=== PATIENT | male | born 1945 | race Caucasian/White ===

== ENCOUNTER 2017-09-02 06:37 | Observation (INO) ==
[2017-09-02] MEDS ORDERED: CeFAZolin Syr 2,000MG/20 ML 2,000 MG/20 ML SYRINGE IVPB ONE (06:51)
[2017-09-02] MEDS ORDERED: Lidocaine -MPF 1% 2 ML VIAL ID ONE (06:51)
[2017-09-02] MEDS ORDERED: *HR* FentaNYL (PF) 100 MCG/2 ML VIAL ONE ×2 (06:55→09:20)
[2017-09-02] MEDS ORDERED: Lidocaine -MPF 2% 2 ML VIAL ONE ×2 (06:55→08:14)
[2017-09-02] MEDS ORDERED: Ketamine *HR* 500 MG/10 ML MDV ONE (06:55)
[2017-09-02] MEDS ORDERED: *HR* Propofol 200 MG/20 ML VIAL IVP ONE (06:55)
[2017-09-02] MEDS ORDERED: *HR* Rocuronium Bromide 50 MG/5 ML VIAL ONE (06:55)
[2017-09-02] MEDS ORDERED: Albuterol 2.5 MG/3 ML NEBULIZER IH ONE (07:02)
[2017-09-02] MEDS: Ringers Solution, Lactated 1,000 ML IVC SCH ×2 (07:04→09:31)
[2017-09-02] MEDS ORDERED: Heparin 1,000 UNITS/500 mL 500 ML ONE (07:06)
[2017-09-02] MEDS ORDERED: Heparin 1,000 UNITS/500 mL 1,500 ML ONE (07:25)
--- NOTE | 2017-09-02 07:25 | Anesthesia Evaluation PreOp ---
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 HX Other Medical History: Renal (CKD 3), GERD Anesthesia History: No Prior Anesthetic Complications, Past Anesthesia Alcohol Use: none Drug use: none Medications and Allergies Albuterol Sulfate [Albuterol Inhaler] 2 puff IH Q4H PRN 06/13/17 [History] Aspirin Enteric Coated [Aspirin EC] 162 mg PO DAILY 06/13/17 [History] Carvedilol [Coreg] 6.25 mg PO BIDWM 06/13/17 [History] Cyanocobalamin (Vitamin B-12) [Vitamin B12] 2,000 mcg PO DAILY 06/13/17 [History ] Escitalopram [Lexapro] 20 mg PO DAILY 06/13/17 [History] Folic Acid 1 mg PO DAILY 06/13/17 [History] HYDROcodone/Acet 10/325 mg [[place] 10-325 mg] 1 - 2 tab PO Q6H 06/13/17 [History] Methotrexate [Otrexup] 20 mg PO TU 06/13/17 [History] Nitroglycerin [Nitrostat] 0.4 mg SL Q5M PRN 06/13/17 [History] Omeprazole [PriLOSEC] 40 mg PO DAILY 06/13/17 [History] Ramipril [Altace] 10 mg PO DAILY 06/13/17 [History] Sennosides [Ex-Lax] 15 mg PO DAILY PRN 06/13/17 [History] Simvastatin [Zocor] 40 mg PO HS 06/13/17 [History] cloNIDine HCl [CloNIDine HCl] 0.1 mg PO DAILY 06/13/17 [History] 3 Allergy/AdvReac Type Severity Reaction Status Date / Time Iodinated Contrast- Oral and AdvReac Hives Verified 06/13/17 12:28 IV Dye iodine AdvReac Hives Verified 06/13/17 12:28 Anesthesia Results - Labs Laboratory Tests 08/25/17 08/25/17 15:46 15:46 Hgb 14.2 Hct 44.2 Plt Count 320 Sodium 137 Potassium 4.5 BUN 15 Creatinine 1.10 - Imaging EKG: report reviewed (SINUS RHYTHM) Additional studies: normal stress test Anesthesia Exam Selected Entries 09/02/17 06:58 09/02/17 07:02 Temperature 98.5 F Pulse Rate 84 Respiratory Rate 18 Blood Pressure 131/81 O2 Sat by Pulse Oximetry 96 - HEENT Pupil (Motor): EOMI Mallampati: II Teeth: Missing Oral Opening: Greater than 3 - 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
[2017-09-02] MEDS ORDERED: Acetaminophen IV 1,000 MG/100 ML INFUS..BTL ONE (07:26)
[2017-09-02] MEDS ORDERED: *HR* Midazolam HCl 2 MG/2 ML VIAL ONE (07:32)
--- NOTE | 2017-09-02 07:36 | History & Physical Report ---
Date of Encounter: 09/02/17 Time of Encounter: 07:25 24 Hour HP Update - Instructions Instructions: If the History and Physical is less than 30 days old and was completed prior to A.M. admission and or procedure and has NOT been updated on calendar day of procedure please complete this update prior to performing procedure. - Update Patient reports changes in Medical Condition: No Changes in examination, assessment, or condition: No Changes in Medication: No Preop tests/diagnostics Reviewed: Yes Surgery Remains Indicated: Yes Consent for Planned Operative Procedure(s) Verified: Yes - Pre-Operative Checklist Preoperative Checklist Indicated: Yes Prophylactic Antibiotic Ordered: Yes Home Medications Include Beta Rom: Yes Beta Rom Taken Today (Day of Surgery): Yes Beta Rom Taken Yesterday (Day Prior to Surgery): Yes Is VTE Prophylaxis Indicated?: Yes
[2017-09-02] MEDS ORDERED: ceFAZolin 1,000 MG, Sodium Chloride IRRigation 1,000 ML IR ONE (07:45)
[2017-09-02] MEDS ORDERED: MethylPREDNISolone 40 MG/ML VIAL ONE (08:26)
[2017-09-02] MEDS ORDERED: EPHEDrine 50 MG/ML VIAL ONE (08:45)
[2017-09-02] MEDS ORDERED: Ondansetron 4 MG/2 ML VIAL IVP ONE (09:01)
[2017-09-02] MEDS ORDERED: *HR* HYDROmorphone 2 MG TABLET PO PRN (09:01)
[2017-09-02] MEDS ORDERED: *HR* Heparin 5,000 UNIT/ML VIAL ONE (09:24)
[2017-09-02] MEDS ORDERED: Water for inj. (sterile) 10 ML IV ONE (09:25)
[2017-09-02] MEDS ORDERED: Ondansetron 4 MG/2 ML VIAL ONE (10:10)
[2017-09-02] MEDS ORDERED: Neostigmine Methylsulfate 3 MG/3 ML SYRINGE ONE (10:12)
[2017-09-02] MEDS ORDERED: Heparin 1,000 UNITS/500 mL 1,000 ML ONE (10:13)
[2017-09-02] MEDS ORDERED: Lidocaine -MPF 4% 5 ML AMPUL ONE (11:06)
--- NOTE | 2017-09-02 11:14 | Operative Note ---
Date of procedure: 09/02/17 Pre-op diagnosis: Abdominal aortic aneurysm Post-op diagnosis: same Procedure: Endovascular repair of abdominal aortic aneurysm Bilateral open femoral artery exposure Catheter placement nonselective anterior aorta from bilateral femoral approach Extension prosthesis initial vessel on right side Radiologic supervision and interpretation Complications: None Anesthesia: GETA Surgeon: Wing Lorenzo Co-Surgeon: Kishan Downing Was there an accounting administrative assistant present: No Estimated blood loss (cc): 200 Specimen: None Condition: stable Disposition: PACU Procedure in Detail: History Usman Leon is a 72-year-old white male with a known history of an abdominal aortic aneurysm. The aneurysm has been expanding in size and is now approximately 5.5 cm. Patient is up to proceed with surgery at this time. He now comes for endovascular repair. Procedure After informed consent was obtained the patient was taken to the operating room. General endotracheal anesthesia was established under arterial line pressure monitoring. The abdomen groin and upper thighs were sterilely prepped and draped. A timeout protocol was observed. A 2 team surgical approach was used for this patient. This was necessary due to the patient's multiple comorbidities. This would also decrease anesthesia time and decreased blood loss. The common femoral artery was dissected bilaterally through oblique incisions. Control was obtained of the vessels using Vesseloops. Then using an 18-gauge needle the arteries were punctured and a retrograde fashion. This was then followed by a wire. An 8 Serbian sheath with dilator was then passed over the wire. The dilator was removed and the sheath was aspirated and flushed. A marker pigtail catheter was placed via the right side. An aortogram was then obtained. The aorta and the iliac artery bifurcation areas were marked and measured. The marker pigtail catheter was then moved over to the left side. The main body was selected to be placed via the right side. The main body was a Medtronic Endurant 2 stent graft system. This was a 25 x 13 x 166 mm device. The device was deployed in the immediate infrarenal location. The suprarenal stent was also deployed. A right-sided device was opened to the point of the docking limb orifice being opened. Then from the left side the docking limb was engaged and appropriate positioning of the wire was assured. Then the left-sided device was placed. This was a 16 x 13 x 124 mm stent graft limb. This was deployed in the position down to but above the left iliac bifurcation. The device [place] was removed and 11 Serbian sheath was then placed. It was then aspirated and flushed with heparinized saline. Attention was then turned back to the right side. The right- sided graft wasn't totally deployed. The top From the suprarenal portion was also removed. This device was then removed and the and 11 Serbian sheath was placed into the right groin. The marker pigtail catheter was then placed back into the right iliac system and a retrograde Angiogram was obtained. It was elected to proceed then with a extension piece on the right side. This was measured at a 13 x 13 x 82 mm. This was then inserted under fluoroscopic control. After this was performed the Reliant balloon was placed from the right and then from the left side and the stent graft was gently dilated. A completion aortogram was then obtained via the marker pigtail catheter. This demonstrated patency of the iliac system and both renal arteries. There was an area of stenosis however in the proximal aspect of the right limb of the graft. Therefore a 10 x 20 balloon was placed into this area and inflated while the overlying balloon was placed into the left side and gently inflated to maintain its luminal diameter. A completion film was then performed which showed resolution of the stenosis. All devices were then removed. The femoral areas were closed with running 6-0 Prolene suture. After appropriate backbleeding and flushing the arteries were opened. Excellent pulsations and Doppler signals were identified bilaterally. The wounds were then irrigated with antibiotic- containing solution. There were closed in layers using absorbable suture. Dry sterile dressings were applied. The patient was extubated in the operating room and taken to the recovery room in stable condition.
--- NOTE | 2017-09-02 11:40 | Anesthesia Evaluation Post Op ---
Date of Encounter: 09/02/17 Time of Encounter: 11:38 - Vital Signs Vital Signs: Vital Signs/O2 Sat/Glucose, Most Recent Temp Pulse Resp BP Pulse Ox 97.6 F 64 16 147/78 100 09/02/17 10:59 09/02/17 11:19 09/02/17 11:19 09/02/17 11:19 09/02/17 11:19 Blood Glucose* 134 - Lungs Lungs: Clear Ascult./Percussion - Airway Airway: Non-obstructed - Cardiovascular Regular Rate - Mental Status Mental Status: Alert & Oriented, Answers Appropriately - Pain Pain Scale: 3 Pain Scale used: Numeric (1 - 10) - Nausea Vomiting Nausea Vomiting: Not Present - Hydration Hydration: Ice chips, Goetz catheter Notes: 09/02/17 11:39 AAOx3, VSS with no complaints, doppler pulses present - Discharge PostOp Status: Transfer Patient to floor
[2017-09-02] MEDS ORDERED: Naloxone 0.4 MG/ML INJ IVP PRN (12:07)
[2017-09-02] MEDS ORDERED: *HR* HYDROcodone/Acet 10/325 mg TABLET PO PRN (12:07)
[2017-09-02] MEDS ORDERED: *HR* Methotrexate 2.5 MG TABLET PO SCH (12:07)
[2017-09-02] MEDS ORDERED: Ondansetron 4 MG/2 ML VIAL IVP PRN (12:07)
[2017-09-02] MEDS ORDERED: Nitroglycerin 0.4 MG TAB.SUBL SL PRN (12:07)
[2017-09-02] MEDS: *HR* OxyCODONE Immed Rel 5 MG TABLET PO PRN ×2 (13:45→20:43)
[2017-09-02] MEDS: CeFAZolin Premix DUPLEX 2,000 MG/50 ML BAG IVPB SCH (15:58)
[2017-09-02] MEDS ORDERED: CeFAZolin Syringe 2,000MG/20 ML SYR IVPB SCH (16:00)
--- NOTE | 2017-09-02 18:25 | Operative Note ---
Date of procedure: 09/02/17 Pre-op diagnosis: Abdominal aortic aneurysm Post-op diagnosis: same Procedure: 1. Medtronic Endurant modular bifurcated aortic endograft placement with 2 docking limbs including radiologic supervision and interpretation. 2. Right femoral vessel exposure for endograft placement. 3. Left femoral vessel exposure for endograft placement. Complications: None Anesthesia: GETA Surgeon: Kishan Downing Co-Surgeon: Wing Lorenzo Was there an fundraising assistant present: No Estimated blood loss (cc): 200 Specimen: None Condition: stable Disposition: PACU Procedure in Detail: Indications: The patient is a 72 year old male with a history of hypertension, hyperlipidemia and coronary artery disease with prior coronary stent placement. He is also a former smoker. He was found to have a 5.5cm infrarenal abdominal arotic aneurysm. His anatomy was suitable for aortic endograft placement and surgery was recommended to reduce her risk of rupture. The patient was identified, brought to the operating room and placed in the supine position on the operating room table. After induction of general endotracheal anesthesia, the patient was cleaned and draped in normal sterile fashion. A two surgeon approach was utilized for this procedure in order to minimize anesthetic time and the risks for complications due to his comorbid conditions. In addition, a two surgeon approach was used for intraoperative decision making. Oblique incisions were made over both groins sharply. Hemostasis was obtained with electrocautery. Using blunt and sharp and electrocautery dissection, the bilateral common, deep and superficial femoral arteries were dissected circumferentially and surrounded with Vesseloops. At this point, the patient received heparin intravenously and then bilateral femoral punctures with large-bore needles were performed. J-wires were advanced into the aorta under fluoroscopic view. Given the anatomy, the main body was selected to be the right side in this patient. The needles were exchanged for bilateral sheaths and a long Pigtail catheter was advanced over the right wire into the aortic arch. The J-wire was removed and replaced with a stiff wire. The catheter was then advanced over the left wire and an angiogram was performed via a pigtail catheter for sizing of the graft. The main body was inserted over the stiff wire with the contralateral limb being in the ipsilateral position. An aortogram was then performed at the level of the renal arteries. The graft was positioned just inferior to the renal arteries and the first 2 segments were deployed. Again an aortogram revealed adequate infrarenal placement. The graft was then further opened to the contralateral limb exposed. A final angiogram was performed confirming adequate infrarenal placement. The suprarenal stent was deployed in the usual fashion. The contralateral limb was then selected with a wire using a guiding catheter. Intragraft placement of the catheter was confirmed by injecting contrast into the graft. An oblique view of the pelvis was performed with contrast to size the left extension limb. The sheath was removed and exchanged for the appropriate limb, which was advanced under fluoroscopic view and positioned. It was then expanded. The introducer and graft sheath were exchanged for a sheath. An oblique view of the right pelvis was performed and the length of the extension limb on the right was determined. The sheath was exchanged for the limb and then the limb was deployed. The introducer and graft sheath were exchanged for a sheath. Upon completion of the graft docking limb extension, a Reliant balloon was then advanced into the graft proximal and distal endpoints as well as overlap were expanded with gentle pressure bilaterally. A Flush completion angiogram revealed no evidence of an endoleak. However, a stenosis was noted to be present in the right proximal iliac artery. A 10 x 20mm balloon was advanced across the stenotic segment and angioplasty was performed. The reliant balloon was inflated in the left limb of the graft to provide counter pressure. The balloons were removed and an angiogram revealed resolution of the stenosis. Tension was applied to the Vesseloops in the groin. The sheaths and wires were then removed. The bilateral arteriotomies were repaired with a running 6-0 Prolene. Antibiotic irrigation was infused into the groin. The bilateral groins incisions were closed with 2-0 Vicryl, 3-0 Vicryl and 4-0 Vicryl. Sterile dressings were applied. The patient was then extubated and taken to the recovery room in stable condition. Device Sizes: Main Body: 25 x 13 x 166 mm Right Limb: 13 x 13 x 82 mm Left Limb: 16 x 13 x 124 mm
[2017-09-02] MEDS: *HR* HYDROcodone/Acet 10/325 mg TABLET PO PRN (18:34)
[2017-09-02] MEDS ORDERED: Aspirin Enteric Coated 81 MG Tablet PO SCH (21:00)
[2017-09-02] MEDS: Lisinopril 20 MG TABLET PO SCH (21:34)
[2017-09-02] MEDS: cloNIDine HCl 0.1 MG TABLET PO SCH (21:34)
[2017-09-02] MEDS: Ketorolac 15 MG/ML VIAL IVP PRN (21:52)
[2017-09-03] MEDS: CeFAZolin Premix DUPLEX 2,000 MG/50 ML BAG IVPB SCH ×2 (00:44→07:32)
[2017-09-03] MEDS: *HR* HYDROcodone/Acet 10/325 mg TABLET PO PRN ×3 (00:45→13:12)
[2017-09-03] MEDS: Ketorolac 15 MG/ML VIAL IVP PRN (02:57)
[2017-09-03] MEDS: *HR* OxyCODONE Immed Rel 5 MG TABLET PO PRN (02:57)
[2017-09-03 07:12] LABS: Hematocrit 38.1 % (37.5-50.1); Hemoglobin 12.2 g/dL (12.9-16.9); Mean Corpuscular Hemoglobin 31.9 pg (28.0-33.3); Mean Corpuscular Volume 99.7 fL (83.0-100.0); Mean Platelet Volume 10.9 fL (9.4-12.4); Platelet Count 220 K/mcL (140-400); Red Blood Count 3.82 M/mcL (4.19-5.50); Red Cell Distribution Width 14.1 % (11.5-14.5)
[2017-09-03] MEDS: Lisinopril 20 MG TABLET PO SCH (07:31)
[2017-09-03] MEDS: cloNIDine HCl 0.1 MG TABLET PO SCH (07:31)
[2017-09-03 08:22] LABS: BUN/Creatinine Ratio 13 (6-26); Blood Urea Nitrogen 15 mg/dL (8-23); Calcium 8.9 mg/dL (8.6-10.3); Carbon Dioxide 25 mEq/L (23-29); Chloride 107 mEq/L (98-107); Glucose 128 mg/dL (70-105); Osmolality,Calculated 290 (280-300); Potassium 4.4 mEq/L (3.5-5.1); Sodium 139 mEq/L (136-145); eGFR For African Americans > 60 (> 60); eGFR For Non-African Americans > 60 (> 60)
[2017-09-03] MEDS ORDERED: Folic Acid 1 MG TABLET PO SCH (09:00)
[2017-09-03] MEDS ORDERED: Cyanocobalamin (B-12) 1,000 MCG TABLET PO SCH (09:00)
[2017-09-03 11:30] VITALS: BP 92/51
--- NOTE | 2017-09-03 11:49 | Discharge Summary ---
Date of Encounter: 09/03/17 Time of Encounter: 11:45 - Discharge Diagnosis (1) AAA (abdominal aortic aneurysm) Priority: Primary Status: Acute Comments: The patient had asymptomatic abdominal aortic aneurysm. The aneurysm was growing in size by serial outpatient measurements. The patient was admitted and had surgical treatment with endovascular repair. Qualifiers: Presence of rupture: without rupture Qualified Code(s): I71.4 - Abdominal aortic aneurysm, without rupture (2) DM type 2 (diabetes mellitus, type 2) Priority: Secondary Status: Chronic Qualifiers: Diabetes mellitus complication status: without complication Diabetes mellitus terminal operator insulin use: without terminal operator use Qualified Code(s): E11.9 - Type 2 diabetes mellitus without complications (3) COPD (chronic obstructive pulmonary disease) Priority: Secondary Status: Chronic Qualifiers: COPD type: unspecified COPD Qualified Code(s): J44.9 - Chronic obstructive pulmonary disease, unspecified (4) HTN (hypertension) Priority: Secondary Status: Chronic Qualifiers: Hypertension type: essential hypertension Qualified Code(s): I10 - Essential (primary) hypertension (5) Hyperlipidemia Priority: Secondary Status: Chronic Qualifiers: Hyperlipidemia type: unspecified Qualified Code(s): E78.5 - Hyperlipidemia , unspecified (6) CAD (coronary artery disease) Priority: Secondary Status: Chronic Qualifiers: Coronary Disease-Associated Artery/Lesion type: ambler artery [place] vs. transplanted heart: ambler heart Associated angina: without angina Qualified Code(s): I25.10 - Atherosclerotic heart disease of ambler coronary artery without angina pectoris - Discharge Medications Prescriptions: HYDROcodone/Acet 5/325 mg [[place] 5-325 mg] 1 tab PO Q4H PRN 7 Days #10 tab PRN Reason: Pain Home Medications: Aspirin Enteric Coated [Aspirin EC] 162 mg PO HS 06/13/17 [History] Carvedilol [Coreg] 6.25 mg PO BIDWM 06/13/17 [History] Cyanocobalamin (Vitamin B-12) [Vitamin B12] 2,000 mcg PO DAILY 06/13/17 [History ] Escitalopram [Lexapro] 20 mg PO DAILY 06/13/17 [History] Folic Acid 1 mg PO DAILY 06/13/17 [History] HYDROcodone/Acet 10/325 mg [[place] 10-325 mg] 1 - 2 tab PO Q6H PRN 06/13/17 [ History] Methotrexate [Otrexup] 20 mg PO TU 06/13/17 [History] Nitroglycerin [Nitrostat] 0.4 mg SL Q5M PRN 06/13/17 [History] Omeprazole [PriLOSEC] 40 mg PO DAILY 06/13/17 [History] Ramipril [Altace] 10 mg PO DAILY 06/13/17 [History] Simvastatin [Zocor] 40 mg PO HS 06/13/17 [History] cloNIDine HCl [CloNIDine HCl] 0.1 mg PO DAILY 06/13/17 [History] HYDROcodone/Acet 5/325 mg [[place] 5-325 mg] 1 tab PO Q4H PRN 7 Days #10 tab 09/03 [Rx] Allergies/Adverse Reactions: 3 Allergy/AdvReac Type Severity Reaction Status Date / Time Iodinated Contrast- Oral and AdvReac Hives Verified 09/02/17 07:35 IV Dye iodine AdvReac Hives Verified 09/02/17 07:35 Date of admission: 09/02/17 11:45 Primary care physician: Gopi David MD Consults: None Procedure(s) Performed: Endovascular repair of abdominal aortic aneurysm Discharging clinician: Wing Lorenzo Anticipated date of discharge: 09/03/17 - Patient Status Disposition: Home, Self-Care Condition: Good Functional capacity at discharge: independent ambulation Overall status at discharge: patient is progressing back to baseline - Discharge Instructions Instructions: Endovascular Abdominal Aortic Aneurysm Repair (DC) Follow Up With: Gopi David MD [Primary Care Provider] - 09/09/17 1:00 pm Wing Lorenzo MD [Partnered Physician] - 09/15/17 2:15 pm Additional Instructions: Resume usual home medications Keep surgical site press tender short goods total of 5 days following surgery. No automobile driving. No lifting greater than 10 pounds. No manual labor. Using incentive spirometer 10 times an hour while awake at home for the next 2 weeks. - Diet and Activity Activity: increase activity as tolerated Diet: advance to your usual diet - Hospital Course Hospital course: Mr. Leon is a 72 year old male With a known abdominal aortic aneurysm. This is been followed by outpatient serial scanning. It is increased in size and the patient now has a greater than 5 cm aneurysm. He desired to have this treated at this point. The patient was admitted and underwent endovascular repair of the abdominal aortic aneurysm. The patient had no periprocedural complications. Patient was feeling well postoperative day #1. He was felt fit for discharge. Instructions were given in regards to diet and exercise and wound care. - Time Spent with Patient Total time spent providing and/or coordinating discharge services: Exam Vital Signs, Last 4 Hours Temp Pulse Resp BP Pulse Ox 09/03/17 11:19 97.9 F 65 19 92/51 94 General: Present: Conversant, No Apparent Distress, Well developed, Well nourished HEENT: Present: Atraumatic, Normocephaly, Trachea midline Neck: Absent: JVD Cardiac: Present: Reg Rate and Rhythm Lungs: Present: Normal Breath Sounds Neuro: Present: Alert and responsive, No focal deficits noted, Cranial nerves grossly intact Abdomen: Present: Soft, Non-tender. Absent: Masses Vascular: Present: Surgical incisions (Clean and dry) - VTE Documentation of Mechanical Device: Intermittent pneumatic compression device
== END 2017-09-03 18:07 | disposition home or self-care (01) | DRG 269 ==
LOC: SAMDAY 06:37 → INTOOBSV 11:45 → 2NNU 11:45
PROVIDERS: ADMIT Surgery Vascular Surgery; ATTEND Surgery Vascular Surgery

== ENCOUNTER 2018-11-05 13:35 | Observation (INO) ==
[2018-11-05] MEDS ORDERED: Ondansetron 4 MG/2 ML VIAL IVP ONE (14:01)
[2018-11-05] MEDS ORDERED: Nitroglycerin 0.4 MG TAB.SUBL SL PRN (14:01)
[2018-11-05] MEDS ORDERED: Aspirin 81 MG TAB.CHEW PO ONE (14:01)
[2018-11-05] MEDS ORDERED: 0.9 % Sodium Chloride 1,000 ML IVC ONE (14:04)
[2018-11-05] MEDS ORDERED: Isovue-370 500 ML BOTTLE IVP ONE (14:04)
--- NOTE | 2018-11-05 14:06 | Emergency Department Note ---
Disposition Clinical Impression: Chest pain Qualifiers: Chest pain type: unspecified Qualified Code(s): R07.9 - Chest pain, unspecified Disposition: Admitted As Inpatient Condition: Fair Referrals: Gopi David MD [Primary Care Provider] - Forms: ED Satisfaction Letter Time of Disposition: 16:55 Chest Pain HPI - General Chief Complaint: ED Chest Pain Stated Complaint: CP,Dizziness,Hypertension Time Seen by Provider: 11/05/18 13:59 Source: patient Limitations: no limitations Vital Signs Reviewed: Yes Nursing Notes Reviewed: Yes - History of Present Illness HPI Narrative: Patient is a 73-year-old male presenting with chest pain. Patient has history of CAD status post stenting 4, last stent was a total of 8 years ago. Patient also has history of abdominal aortic aneurysm repair, Dr. Lorenzo. History of hypertension as well as hyperlipidemia. Patient states for the past month he has been having intermittent chest pain, over the past 2 days she has had increasing pain in the middle of his chest described as a heaviness, with radiation into the left arm, he also had associated shortness of breath with exertion. No change in chest pain with exertion. Pain does not resolve with rest. He also has associated nausea without vomiting. He also has had some diaphoretic episodes. Patient was seen by Dr. Murrell approximately one week ago, at that point in time he was placed on a beta alfredo. States that he has had some increased lightheaded and dizziness since this time. Patient also rep orts some mid epigastric abdominal pain. Has been taking his medications as prescribed. Patient states his blood pressure has been elevated over the past couple of days up until 180 systolic. He states he supposed to be on Imdur, however has not been taking this for the past few days secondary to headache. Severity scale (1-10): 2 - Related Data Home Medications Medication Instructions Recorded Confirmed Aspirin Enteric Coated [Aspirin EC] 81 mg PO HS 06/13/17 11/05/18 Cyanocobalamin (Vitamin B-12) 1,000 mcg PO DAILY 06/13/17 11/05/18 [Vitamin B12] Escitalopram [Lexapro] 20 mg PO DAILY 06/13/17 11/05/18 Folic Acid 1 mg PO DAILY@1600 06/13/17 11/05/18 HYDROcodone/Acet 10/325 mg [[place] 2 tab PO Q8H 06/13/17 11/05/18 10-325 mg] Methotrexate [Otrexup] 20 mg PO TU 06/13/17 11/05/18 Nitroglycerin [Nitrostat] 0.4 mg SL Q5M PRN 06/13/17 11/05/18 Omeprazole [PriLOSEC] 40 mg PO DAILY 06/13/17 11/05/18 Simvastatin [Zocor] 40 mg PO HS 06/13/17 11/05/18 cloNIDine HCl [CloNIDine HCl] 0.1 mg PO HS 06/13/17 11/05/18 Losartan Potassium [Cozaar] 100 mg PO DAILY 11/05/18 11/05/18 Metoprolol [Lopressor] 25 mg PO BID 11/05/18 11/05/18 traZODone [TraZODone] 50 mg PO HS 11/05/18 11/05/18 Allergies Allergy/AdvReac Type Severity Reaction Status Date / Time Iodinated Contrast- Oral and AdvReac Hives Verified 09/02/17 07:35 IV Dye iodine AdvReac Hives Verified 09/02/17 07:35 All systems ED: reviewed and negative except as stated. Review of Systems: As Per HPI Constitutional: Denies: fever, chills ENT ED: Denies: congestion Cardiovascular: Reports: chest pain, dyspnea on exertion. Denies: palpitations, edema, syncope Respiratory: Reports: dyspnea. Denies: cough, wheezes, hemoptysis Gastrointestinal: Reports: abdominal pain, nausea. Denies: vomiting, diarrhea, hematemesis, melena, hematochezia Genitourinary: Denies: urgency, dysuria Musculoskeletal: Denies: back pain Integumentary: Denies: rash Neurological: Denies: headache, weakness, numbness, paresthesias, confusion Endocrine: Denies: fatigue Hematological/Lymphatic: Denies: easy bleeding Chest Pain PMH - Past Medical History Medical history: Reports: aortic aneurysm, arthritis, asthma, COPD, coronary artery disease, diabetes, hyperlipidemia, hypertension, myocardial infarction Surgical history: Reports: herniorrhaphy, tonsilectomy Psychiatric history: Reports: no psych history - Social History Smoking Status: Former smoker Alcohol use: Reports: none Drug use: Reports: none Physical Exam - General Limitations: no limitations General appearance: alert, in no apparent distress - Head Head exam: atraumatic, normocephalic, normal inspection - Eye Eye exam: Present: normal appearance, PERRL, EOMI - ENT ENT exam: normal exam, normal oropharynx, mucous membranes moist - Neck Neck exam: Present: normal inspection, full ROM, trachea midline - Chest Chest inspection: Present: normal inspection, symmetric chest wall rise - Respiratory Respiratory exam: Present: normal lung sounds bilaterally - Cardiovascular Cardiovascular exam: Present: normal rhythm, bradycardia - Abdominal Exam Abdominal exam: Present: soft, tenderness (Patient does have minimal m idepigastric abdominal pain, without guarding or rebound). Absent: distention, guarding, rebound, rigidity - Extremities Exam Extremities exam: Present: normal inspection, full ROM. Absent: tenderness, pedal edema - Expanded Lower Extremity Exam Neurovascular/Tendon exam: Absent: motor deficit, sensory deficit, tendon deficit - Back Exam Back exam: Present: normal inspection, full ROM. Absent: tenderness - Neurological Exam Neurological exam: Present: alert, oriented X3 - Psychiatric Psychiatric exam: Present: normal affect, normal mood - Skin Skin exam: Present: warm, dry, intact, normal color. Absent: rash, diaphoresis Course Vital Signs Temperature 98.2 F 11/05/18 13:47 Pulse Rate 45 11/05/18 13:47 Respiratory Rate 15 11/05/18 13:47 Blood Pressure 183/89 11/05/18 13:47 O2 Sat by Pulse Oximetry 100 11/05/18 13:47 Temperature 98.2 F 11/05/18 14:03 Pulse Rate 51 11/05/18 15:17 Respiratory Rate 16 11/05/18 15:17 Blood Pressure 165/70 11/05/18 15:17 O2 Sat by Pulse Oximetry 99 11/05/18 15:17 Oxygen Delivery Oxygen Delivery Nasal Cannula Chest Pain - MDM Narrative Medical decision making narrative: Patient is a 73-year-old male presenting with chest pain and shortness of breath . Was sent here by Dr. David for hypertension. On arrival, patient states that he has been having significant lightheaded dizziness as well as chest pain at rest breath for the past week and a half to one month, worse over the past few days. On arrival, patient is found to be bradycardic, with a heart rate of 45, he did recently have a beta alfredo increase by his scale adjuster. Patient was also hypertensive with a blood pressure of 220 systolic. Patient was given a liter normal saline, as well as 5 mg of hydralazine, he was given 324 mg of Tylenol, refusing at this point in time due to no pain for nitroglycerin. Repeat blood pressure at this point in time is 160s systolic. Patient has been without pain at this time, declines nitroglycerin at this point. CTA of the chest and abdomen and pelvis, to rule out dissection was all negative, show no acute dissection, continues to show repaired aneurysm without rupture. Troponin is within normal limits, EKG shows no acute ischemic changes, however does show a sinus bradycardia. at this point in time, patient will be admitted for ACS rule out. Patient agrees with disposition. - Medical Records Medical records reviewed: Yes I reviewed the patient's medical records. - Lab Data Lab results reviewed: Yes I reviewed the patient's lab results. Result diagrams: 11/05/18 13:52 11/05/18 13:52 Lab Results 11/05/18 11/05/18 11/05/18 Range/Units 13:52 13:52 13:52 WBC (4.3-11.1) K/mcL RBC (4.19-5.50) M/mcL Hgb (12.9-16.9) g/dL Hct (37.5-50.1) % MCV (83.0-100.0) fL MCH (28.0-33.3) pg MCHC (31.6-35.5) g/dL RDW (11.5-14.5) % Plt Count (140-400) K/mcL MPV (9.4-12.4) fL Immature Gran % (0-4) % Seg Neutrophils % % Lymphocytes % % Monocytes % % Eosinophils % % Basophils % % Neutrophils # (1.6-8.9) K/mcL Lymphocytes # (0.6-4.6) K/mcL Monocytes # (0.0-1.3) K/mcL Eosinophils # (0.0-0.6) K/mcL Basophils # (0.0-0.2) K/mcL PT 12.5 H (9.4-12.1) Seconds INR 1.1 APTT 35.2 (26.0-36.0) Seconds Sodium (136-145) mEq/L Potassium (3.5-5.1) mEq/L Chloride (98-107) mEq/L Carbon Dioxide (23-29) mEq/L BUN (8-23) mg/dL Creatinine (0.70-1.30) mg/dL Est GFR ( Amer) (> 60) Est GFR (Non-Af Amer) (> 60) BUN/Creatinine Ratio (6-26) Glucose (70-105) mg/dL Calculated Osmolality (280-300) Calcium (8.6-10.3) mg/dL Total Bilirubin 0.7 (0.3-1.0) mg/dL Direct Bilirubin 0.2 (0.0-0.2) mg/dL Indirect Bilirubin 0.5 (0.0-1.2) mg/dL AST 11 L (13-39) Units/L ALT 5 L (7-52) Units/L Alkaline Phosphatase 54 (34-104) Units/L Troponin I (< 0.04) ng/mL B-Natriuretic Peptide 314 H (Less than 100) pg/mL Serum Total Protein 6.6 (6.4-8.9) g/dL Albumin 4.0 (3.5-5.7) g/dL Globulin 2.6 (2.4-3.5) g/dL Albumin/Globulin Ratio 1.5 (1.1-2.2) Lipase 14 (11-82) Units/L 11/05/18 11/05/18 Range/Units 13:52 13:52 WBC 7.5 (4.3-11.1) K/mcL RBC 4.52 (4.19-5.50) M/mcL Hgb 13.4 (12.9-16.9) g/dL Hct 41.9 (37.5-50.1) % MCV 92.7 (83.0-100.0) fL MCH 29.6 (28.0-33.3) pg MCHC 32.0 (31.6-35.5) g/dL RDW 14.0 (11.5-14.5) % Plt Count 258 (140-400) K/mcL MPV 10.3 (9.4-12.4) fL Immature Gran % 0.4 (0-4) % Seg Neutrophils % 64.5 % Lymphocytes % 22.0 % Monocytes % 9.9 % Eosinophils % 2.3 % Basophils % 0.9 % Neutrophils # 4.9 (1.6-8.9) K/mcL Lymphocytes # 1.7 (0.6-4.6) K/mcL Monocytes # 0.7 (0.0-1.3) K/mcL Eosinophils # 0.2 (0.0-0.6) K/mcL Basophils # 0.1 (0.0-0.2) K/mcL PT (9.4-12.1) Seconds INR APTT (26.0-36.0) Seconds Sodium 140 (136-145) mEq/L Potassium 4.1 (3.5-5.1) mEq/L Chloride 105 (98-107) mEq/L Carbon Dioxide 26 (23-29) mEq/L BUN 13 (8-23) mg/dL Creatinine 1.03 (0.70-1.30) mg/dL Est GFR ( Amer) > 60 (> 60) Est GFR (Non-Af Amer) > 60 (> 60) BUN/Creatinine Ratio 13 (6-26) Glucose 105 (70-105) mg/dL Calculated Osmolality 290 (280-300) Calcium 9.5 (8.6-10.3) mg/dL Total Bilirubin (0.3-1.0) mg/dL Direct Bilirubin (0.0-0.2) mg/dL Indirect Bilirubin (0.0-1.2) mg/dL AST (13-39) Units/L ALT (7-52) Units/L Alkaline Phosphatase (34-104) Units/L Troponin I < 0.03 (< 0.04) ng/mL B-Natriuretic Peptide (Less than 100) pg/mL Serum Total Protein (6.4-8.9) g/dL Albumin (3.5-5.7) g/dL Globulin (2.4-3.5) g/dL Albumin/Globulin Ratio (1.1-2.2) Lipase (11-82) Units/L - Radiology Data Radiology results reviewed: Yes I reviewed the patient's radiology results. Chest X-Ray 11/05/18 14:01 IMPRESSION: No significant findings in the chest. D/ / Rocky Doshi MD / Rocky Doshi MD Interpreting Provider: Rocky Doshi MD Dissection 11/05/18 14:04 IMPRESSION: 1. AAA status post endograft repair. No endoleak. Stable appearance from prior imaging. 2. Nodular enlargement of the prostate contributing to mass effect upon the base of the bladder. Recommend correlation with urology history. 3. Postsurgical and degenerative changes are described above in the thoracolumbar spine. RECOMMENDATIONS: Managing Abdominal Aortic Aneurysms 2.6-2.9 cm: Every 5 years* 3.0-3.4 cm: Every 3 years. 3.5-3.9 cm: Every 1 year. 4.0-4.4 cm: Every 1 year. Recommend vascular consultation. 4.5-5.4 cm: Every 6 months. Recommend vascular consultation. Greater than or equal to 5.5 cm: Referral to vascular surgeon. *For abdominal aortas with maximum diameter of 2.6-2.9 cm meeting criteria for AAA (>50% of proximal normal segment). Reference: J Vasc Surg. 2008;50(4 Suppl):S2-49 D/ / Rocky Doshi MD / Rocky Doshi MD Interpreting Provider: Rocky Doshi MD - EKG Data EKG attestation: Yes I reviewed and interpreted this EKG. EKG results narrative: EKG performed at 1351 ventricular rate of 45, regular rhythm,, normal axis, he does have a right bundle branch block and left anterior fascicular block. No ST segment elevation, depression, there is T-wave inversion in lead 3, aVF .Overall appears sinus bradycardia when compared to previous EKG performed in 06/05/2018, appears to be change from baseline with bradycardia at this point, T waves are unchanged. Heart Score - Score History: Moderately Suspicious EKG: Normal Age: Greater than 65 Risk Factors: Equal/Greater than 3 risk factor or history of atherosclerotic disease Troponin: Less than normal limit HEART Score Total: 5 Critical Care Time Critical Care Time: No S.B.A.R. - S.B.A.R. Situation: Demographics, MOA Background: Presenting Complaint, Relevant PMH, Meds, & Allergies Assessment: Vital Signs, Course and respsone to treatment, Exam Concerns, P atient/Family Expectation, Pertinant Lab Results, Outstanding Labs Recommendation: Barrier(s) to disposition, Recommendation based on pending studies, treatments, or consults [place] Report Given to: Dr. Yung Mortensen Repor Time: 18:20 (accepted)
[2018-11-05 14:12] LABS: Basophils # 0.1 K/mcL (0.0-0.2); Basophils % 0.9 %; Eosinophils # 0.2 K/mcL (0.0-0.6); Eosinophils % 2.3 %; Hematocrit 41.9 % (37.5-50.1); Hemoglobin 13.4 g/dL (12.9-16.9); Immature Granulocytes % 0.4 % (0-4); Lymphocytes # 1.7 K/mcL (0.6-4.6); Mean Corpuscular Hemoglobin 29.6 pg (28.0-33.3); Mean Corpuscular Volume 92.7 fL (83.0-100.0); Mean Platelet Volume 10.3 fL (9.4-12.4); Monocytes # 0.7 K/mcL (0.0-1.3); Monocytes % 9.9 %; Neutrophils # 4.9 K/mcL (1.6-8.9); Platelet Count 258 K/mcL (140-400); Red Blood Count 4.52 M/mcL (4.19-5.50); Segmented Neutrophils % 64.5 %
[2018-11-05 14:36] LABS: BUN/Creatinine Ratio 13 (6-26); Blood Urea Nitrogen 13 mg/dL (8-23); Calcium 9.5 mg/dL (8.6-10.3); Carbon Dioxide 26 mEq/L (23-29); Chloride 105 mEq/L (98-107); Glucose 105 mg/dL (70-105); INR 1.1; Osmolality,Calculated 290 (280-300); Potassium 4.1 mEq/L (3.5-5.1); Prothrombin Time 12.5 Seconds (9.4-12.1); Sodium 140 mEq/L (136-145); Troponin I < 0.03 ng/mL (< 0.04); eGFR For Non-African Americans > 60 (> 60)
[2018-11-05 14:38] LABS: Activated Partial Thrombo Time 35.2 Seconds (26.0-36.0)
[2018-11-05 14:40] LABS: Albumin/Globulin Ratio 1.5 (1.1-2.2); Bilirubin,Direct 0.2 mg/dL (0.0-0.2); Bilirubin,Indirect 0.5 mg/dL (0.0-1.2); Bilirubin,Total 0.7 mg/dL (0.3-1.0); Globulin 2.6 g/dL (2.4-3.5); Total Protein 6.6 g/dL (6.4-8.9)
--- NOTE | 2018-11-05 14:45 | Emergency Department Note ---
Disposition Clinical Impression: Chest pain Disposition: Admitted As Inpatient Condition: Fair Referrals: Gopi David MD [Primary Care Provider] - Forms: ED Satisfaction Letter General Adult HPI - General Chief complaint: ED Chest Pain Stated complaint: CP,Dizziness,Hypertension Time Seen by Provider: 11/05/18 13:59 Source: patient Limitations: no limitations - History of Present Illness Pain Scale: 2 - Related Data Home Medications Medication Instructions Recorded Confirmed Aspirin Enteric Coated [Aspirin EC] 81 mg PO HS 06/13/17 11/05/18 Cyanocobalamin (Vitamin B-12) 1,000 mcg PO DAILY 06/13/17 11/05/18 [Vitamin B12] Escitalopram [Lexapro] 20 mg PO DAILY 06/13/17 11/05/18 Folic Acid 1 mg PO DAILY@1600 06/13/17 11/05/18 HYDROcodone/Acet 10/325 mg [[place] 2 tab PO Q8H 06/13/17 11/05/18 10-325 mg] Methotrexate [Otrexup] 20 mg PO TU 06/13/17 11/05/18 Nitroglycerin [Nitrostat] 0.4 mg SL Q5M PRN 06/13/17 11/05/18 Omeprazole [PriLOSEC] 40 mg PO DAILY 06/13/17 11/05/18 Simvastatin [Zocor] 40 mg PO HS 06/13/17 11/05/18 cloNIDine HCl [CloNIDine HCl] 0.1 mg PO HS 06/13/17 11/05/18 Losartan Potassium [Cozaar] 100 mg PO DAILY 11/05/18 11/05/18 Metoprolol [Lopressor] 25 mg PO BID 11/05/18 11/05/18 traZODone [TraZODone] 50 mg PO HS 11/05/18 11/05/18 Allergies Allergy/AdvReac Type Severity Reaction Status Date / Time Iodinated Contrast- Oral and AdvReac Hives Verified 09/02/17 07:35 IV Dye iodine AdvReac Hives Verified 09/02/17 07:35 Past Medical History - Past Medical History Medical history: Reports: aortic aneurysm, arthritis, asthma, COPD, coronary artery disease, diabetes, hyperlipidemia, hypertension, myocardial infarction Surgical history: Reports: herniorrhaphy, tonsilectomy Psychiatric history: Reports: no psych history - Social History Smoking Status: Former smoker Smokeless Tobacco Status: No Alcohol use: Reports: none Drug use: Reports: none Physical Exam - General Limitations: no limitations General appearance: alert, in no apparent distress Course Vital Signs Temperature 98.2 F 11/05/18 13:47 Pulse Rate 45 11/05/18 13:47 Respiratory Rate 15 11/05/18 13:47 Blood Pressure 183/89 11/05/18 13:47 O2 Sat by Pulse Oximetry 100 11/05/18 13:47 Temperature 98.2 F 11/05/18 14:03 Pulse Rate 54 11/05/18 18:41 Respiratory Rate 16 11/05/18 18:41 Blood Pressure 161/76 11/05/18 18:41 O2 Sat by Pulse Oximetry 98 11/05/18 18:41 Oxygen Delivery Oxygen Delivery Nasal Cannula Medical Decision Making - Lab Data Result diagrams: 11/05/18 13:52 11/05/18 13:52 Lab Results 11/05/18 11/05/18 11/05/18 Range/Units 13:52 13:52 13:52 WBC (4.3-11.1) K/mcL RBC (4.19-5.50) M/mcL Hgb (12.9-16.9) g/dL Hct (37.5-50.1) % MCV (83.0-100.0) fL MCH (28.0-33.3) pg MCHC (31.6-35.5) g/dL RDW (11.5-14.5) % Plt Count (140-400) K/mcL MPV (9.4-12.4) fL Immature Gran % (0-4) % Seg Neutrophils % % Lymphocytes % % Monocytes % % Eosinophils % % Basophils % % Neutrophils # (1.6-8.9) K/mcL Lymphocytes # (0.6-4.6) K/mcL Monocytes # (0.0-1.3) K/mcL Eosinophils # (0.0-0.6) K/mcL Basophils # (0.0-0.2) K/mcL PT 12.5 H (9.4-12.1) Seconds INR 1.1 APTT 35.2 (26.0-36.0) Seconds Sodium (136-145) mEq/L Potassium (3.5-5.1) mEq/L Chloride (98-107) mEq/L Carbon Dioxide (23-29) mEq/L BUN (8-23) mg/dL Creatinine (0.70-1.30) mg/dL Est GFR ( Amer) (> 60) Est GFR (Non-Af Amer) (> 60) BUN/Creatinine Ratio (6-26) Glucose (70-105) mg/dL Calculated Osmolality (280-300) Calcium (8.6-10.3) mg/dL Total Bilirubin 0.7 (0.3-1.0) mg/dL Direct Bilirubin 0.2 (0.0-0.2) mg/dL Indirect Bilirubin 0.5 (0.0-1.2) mg/dL AST 11 L (13-39) Units/L ALT 5 L (7-52) Units/L Alkaline Phosphatase 54 (34-104) Units/L Troponin I (< 0.04) ng/mL B-Natriuretic Peptide 314 H (Less than 100) pg/mL Serum Total Protein 6.6 (6.4-8.9) g/dL Albumin 4.0 (3.5-5.7) g/dL Globulin 2.6 (2.4-3.5) g/dL Albumin/Globulin Ratio 1.5 (1.1-2.2) Lipase 14 (11-82) Units/L 11/05/18 11/05/18 Range/Units 13:52 13:52 WBC 7.5 (4.3-11.1) K/mcL RBC 4.52 (4.19-5.50) M/mcL Hgb 13.4 (12.9-16.9) g/dL Hct 41.9 (37.5-50.1) % MCV 92.7 (83.0-100.0) fL MCH 29.6 (28.0-33.3) pg MCHC 32.0 (31.6-35.5) g/dL RDW 14.0 (11.5-14.5) % Plt Count 258 (140-400) K/mcL MPV 10.3 (9.4-12.4) fL Immature Gran % 0.4 (0-4) % Seg Neutrophils % 64.5 % Lymphocytes % 22.0 % Monocytes % 9.9 % Eosinophils % 2.3 % Basophils % 0.9 % Neutrophils # 4.9 (1.6-8.9) K/mcL Lymphocytes # 1.7 (0.6-4.6) K/mcL Monocytes # 0.7 (0.0-1.3) K/mcL Eosinophils # 0.2 (0.0-0.6) K/mcL Basophils # 0.1 (0.0-0.2) K/mcL PT (9.4-12.1) Seconds INR APTT (26.0-36.0) Seconds Sodium 140 (136-145) mEq/L Potassium 4.1 (3.5-5.1) mEq/L Chloride 105 (98-107) mEq/L Carbon Dioxide 26 (23-29) mEq/L BUN 13 (8-23) mg/dL Creatinine 1.03 (0.70-1.30) mg/dL Est GFR ( Amer) > 60 (> 60) Est GFR (Non-Af Amer) > 60 (> 60) BUN/Creatinine Ratio 13 (6-26) Glucose 105 (70-105) mg/dL Calculated Osmolality 290 (280-300) Calcium 9.5 (8.6-10.3) mg/dL Total Bilirubin (0.3-1.0) mg/dL Direct Bilirubin (0.0-0.2) mg/dL Indirect Bilirubin (0.0-1.2) mg/dL AST (13-39) Units/L ALT (7-52) Units/L Alkaline Phosphatase (34-104) Units/L Troponin I < 0.03 (< 0.04) ng/mL B-Natriuretic Peptide (Less than 100) pg/mL Serum Total Protein (6.4-8.9) g/dL Albumin (3.5-5.7) g/dL Globulin (2.4-3.5) g/dL Albumin/Globulin Ratio (1.1-2.2) Lipase (11-82) Units/L Attestation Statement - Attestation Attestation: I examined this patient and my medical decision-making was reviewed with the Resident Physician. I agree with the documented findings, disposition and treatment plan as described except to the extent set forth below. Patient to the ED with a chief complaint of weakness. He states he has been dyspneic. Dull chest discomfort. Lightheaded. Symptoms for over a week. He had the flu prior to that. Patient also states that he has recently had a change in his medications. He had a long-acting nitroglycerin added he cannot tolerate secondary to headaches. He also had an increase in his metoprolol 2 weeks ago. He is in no acute distress on examination. Awake alert. Lungs clear. Neurologically intact. Plan. Cardiac workup. Imaging unremarkable. Troponin is negative. Patient is admitted for further workup. Chest X-Ray 11/05/18 14:01 IMPRESSION: No significant findings in the chest. D/ / Rocky Doshi MD / Rocky Doshi MD Interpreting Provider: Rocky Doshi MD Dissection 11/05/18 14:04 IMPRESSION: 1. AAA status post endograft repair. No endoleak. Stable appearance from prior imaging. 2. Nodular enlargement of the prostate contributing to mass effect upon the base of the bladder. Recommend correlation with urology history. 3. Postsurgical and degenerative changes are described above in the thoracolumbar spine. RECOMMENDATIONS: Managing Abdominal Aortic Aneurysms 2.6-2.9 cm: Every 5 years* 3.0-3.4 cm: Every 3 years. 3.5-3.9 cm: Every 1 year. 4.0-4.4 cm: Every 1 year. Recommend vascular consultation. 4.5-5.4 cm: Every 6 months. Recommend vascular consultation. Greater than or equal to 5.5 cm: Referral to vascular surgeon. *For abdominal aortas with maximum diameter of 2.6-2.9 cm meeting criteria for AAA (>50% of proximal normal segment). Reference: J Vasc Surg. 2009 May;50(4 Suppl):S2-49 D/ / Rocky Doshi MD / Rocky Doshi MD Interpreting Provider: Rocky Doshi MD
[2018-11-05] MEDS ORDERED: *HR* HYDROcodone/Acet 10/325 mg TABLET PO ONE (18:45)
[2018-11-06] MEDS ORDERED: *HR* HYDROcodone/Acet 10/325 mg TABLET PO PRN ×2 (04:50→11:18)
--- NOTE | 2018-11-06 06:27 | Electrocardiograph Report ---
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
[2018-11-06] MEDS ORDERED: Naloxone 0.4 MG/ML INJ IVP PRN (06:33)
--- NOTE | 2018-11-06 06:57 | Internal Med History&Physical ---
Date of Encounter: 11/06/18 Time of Encounter: 04:00 Internal Medicine - H&P: HPI Chief complaint: Chest Pain Admitted From: Home Plans for Post Hospital Care: Home History of present illness: Mr. Leon is a 73 year old male with past medical history significant for CAD with stents x4, [place] x2, hypertension, hyperlipidemia, aortic anuerysm, asthma, COPD, arthritis, and chronic back pain who presents from PCP office due to elevated blood pressure over 200 systolic. Patient has been having intermittent chest pain, bradycardia, and dizziness for past 2-3 months and has been following with [facility] for same. Denies any alleviating or exacerbating factors with chest pain. Last seen last week by [facility] and scheduled for follow up again tomorrow to discuss recent stress test findings. Recently stopped long acting nitrate due to headaches and also had recent metoprolol increase. ER gave dose of IV hydralazine which has controlled blood pressure adequately since arrival. ER also obtained EKG that showed sinus bradycardia with no st elevation or depression. Chest xray showed no acute findings. ER also obtained CTA dissection study which showed known AAA status post endograft repair with no endoleak and stable appearance from prior imaging, nodular enlargement of the prostate contributing to mass effect upon the base of the bladder recommending correlation with urology history, and postsurgical degenerative changes of thoracolumbar spine. Patient currently denies any headache, chest pain, shortness of breath, abdominal pain, nausea, bowel or bladder changes. Patient reports having echocardiogram around six months ago but is unable to report any results. Also reports having carotid dopplers completed around 2 years ago that were normal as far as he knows. Follows regularly with PCP and cardiology as mentioned above. Also follows regularly with Dr Lorenzo for AAA and was last seen around three weeks ago with a normal visit. Also follows intermittently with pain management for chronic back pain. Past Med Surg Social Fam HX - Past Medical History Medical history: aortic aneurysm, arthritis, asthma, COPD, coronary artery disease, hyperlipidemia, hypertension, myocardial infarction Additional medical history: ventricular hypertrophy, chronic back pain Psychiatric history: no psych history - Past Surgical History Surgical History: herniorrhaphy, tonsilectomy Additional surgical history: stents x5, aneurysm, angioplasty of coronary artery - Social History Smoking Status: Former smoker Smokeless Tobacco Status: No Alcohol use: none Drug use: none - Family History Father Living Status: Hx Family Cardiac Disorders: Yes Internal Medicine - H&P: Meds Aspirin Enteric Coated [Aspirin EC] 81 mg PO HS 06/13/17 [History] Cyanocobalamin (Vitamin B-12) [Vitamin B12] 1,000 mcg PO DAILY 06/13/17 [History] Escitalopram [Lexapro] 20 mg PO DAILY 06/13/17 [History] Folic Acid 1 mg PO DAILY@1600 06/13/17 [History] HYDROcodone/Acet 10/325 mg [[place] 10-325 mg] 2 tab PO Q8H 06/13/17 [History] Methotrexate [Otrexup] 20 mg PO TU 06/13/17 [History] Nitroglycerin [Nitrostat] 0.4 mg SL Q5M PRN 06/13/17 [History] Omeprazole [PriLOSEC] 40 mg PO DAILY 06/13/17 [History] Simvastatin [Zocor] 40 mg PO HS 06/13/17 [History] cloNIDine HCl [CloNIDine HCl] 0.1 mg PO HS 06/13/17 [History] Losartan Potassium [Cozaar] 100 mg PO DAILY 11/05/18 [History] Metoprolol [Lopressor] 25 mg PO BID 11/05/18 [History] traZODone [TraZODone] 50 mg PO HS 11/05/18 [History] Allergy/AdvReac Type Severity Reaction Status Date / Time Iodinated Contrast- Oral and AdvReac Hives Verified 09/02/17 07:35 IV Dye iodine AdvReac Hives Verified 09/02/17 07:35 All Systems PM: A 10-system review of systems was performed and is negative for pertinent findings except as documented above in the HPI. - Constitutional Vitals: Temp Pulse Resp BP Pulse Ox 98.5 F 57 15 146/65 90 11/06/18 03:38 11/06/18 03:38 11/06/18 03:38 11/06/18 03:38 11/06/18 03:38 Exam: General: Alert and oriented. Skin:Normal color, no rash, no lesions. HEENT:Pupils equal, round and reactive. Cardiovascular:Heart sounds distant, no rubs, murmurs or gallops. No JVD. Pulse regular. Lungs:Normal breath sounds, no wheezes or crackles. Abdomen:Soft, non-tender, no rigidity. Extremities:No deformity, no edema or tenderness, no joint swelling or clubbing. Neurological:Normal cognition and motor skills. Pulses:Carotid and radial pulses normal +2. Rest of the physical exam is non contributory. Internal Med - H&P Results - Labs CBC & Chem 7: 11/05/18 13:52 11/05/18 13:52 Labs: Short CBC 11/05/18 Range/Units 13:52 WBC 7.5 (4.3-11.1) K/mcL Hgb 13.4 (12.9-16.9) g/dL Hct 41.9 (37.5-50.1) % Plt Count 258 (140-400) K/mcL Neutrophils # 4.9 (1.6-8.9) K/mcL BMP 11/05/18 13:52 Sodium 140 Potassium 4.1 Chloride 105 Carbon Dioxide 26 BUN 13 Creatinine 1.03 Glucose 105 Calcium 9.5 Cardiac Enzymes 11/05/18 11/06/18 Range/Units 13:52 02:28 Troponin I < 0.03 < 0.03 (< 0.04) ng/mL Liver Function 11/05/18 Range/Units 13:52 Total Bilirubin 0.7 (0.3-1.0) mg/dL Direct Bilirubin 0.2 (0.0-0.2) mg/dL AST 11 L (13-39) Units/L ALT 5 L (7-52) Units/L Alkaline Phosphatase 54 (34-104) Units/L Albumin 4.0 (3.5-5.7) g/dL - Impressions ITS Impressions Chest X-Ray 11/05/18 14:01 IMPRESSION: No significant findings in the chest. D/ / Rocky Doshi MD / Rocky Doshi MD Interpreting Provider: Rocky Doshi MD Dissection 11/05/18 14:04 IMPRESSION: 1. AAA status post endograft repair. No endoleak. Stable appearance from prior imaging. 2. Nodular enlargement of the prostate contributing to mass effect upon the base of the bladder. Recommend correlation with urology history. 3. Postsurgical and degenerative changes are described above in the thoracolumbar spine. RECOMMENDATIONS: Managing Abdominal Aortic Aneurysms 2.6-2.9 cm: Every 5 years* 3.0-3.4 cm: Every 3 years. 3.5-3.9 cm: Every 1 year. 4.0-4.4 cm: Every 1 year. Recommend vascular consultation. 4.5-5.4 cm: Every 6 months. Recommend vascular consultation. Greater than or equal to 5.5 cm: Referral to vascular surgeon. *For abdominal aortas with maximum diameter of 2.6-2.9 cm meeting criteria for AAA (>50% of proximal normal segment). Reference: J Vasc Surg. 2009 May;50(4 Suppl):S2-49 D/ / Rocky Doshi MD / Rocky Doshi MD Interpreting Provider: Rocky Doshi MD - Assessment and Plan (1) Chest pain Current Visit: Yes Status: Acute Assessment and plan: Intermittent over past 2-3 months, currently denies pain. Cardiology consult ordered, will need called later in a.m. Initial troponin negative, serial troponins ordered. Continuous cardiac monitoring. Recent stress test completed. Echocardiogram ordered. NPO. Qualifiers: Chest pain type: unspecified Qualified Code(s): R07.9 - Chest pain, unspecified (2) Bradycardia Current Visit: Yes Status: Acute Assessment and plan: Reports known bradycardia over past 2-3 months. Cardiology consult ordered, will need called later in a.m. Continuous cardiac monitoring. Echocardiogram ordered. (3) Dizziness Current Visit: Yes Status: Acute Assessment and plan: Intermittent over past 2-3 months, currently denies dizziness. Could be secondary to bradycardia. Cardiology consult ordered, will need called later in a.m. Continuous cardiac monitoring. Echocardiogram and carotid dopplers ordered. Orthostatic vitals ordered. (4) Enlarged prostate Current Visit: Yes Status: Acute Assessment and plan: Nodular enlargement of prostate noted on CTA dissection study. Will need appropriate follow up arranged. (5) HTN (hypertension) Current Visit: No Status: Chronic Assessment and plan: Acute on chronic. Sent in to ER from PCP office for systolic over 200. Well controlled after receiving IV hydralazine in ER. Paolonue home medications once verified. Qualifiers: Hypertension type: essential hypertension Qualified Code(s): I10 - Essential (primary) hypertension - Time Spent With Patient Total time spent is greater than 50% in coordination of care (as documented) at patient's floor/unit and/or counseling patient:
[2018-11-06] MEDS ORDERED: Aspirin Enteric Coated 81 MG Tablet PO SCH (09:30)
[2018-11-06 09:35] LABS: Basophils # 0.1 K/mcL (0.0-0.2); Basophils % 0.8 %; Eosinophils # 0.1 K/mcL (0.0-0.6); Hematocrit 45.5 % (37.5-50.1); Hemoglobin 14.2 g/dL (12.9-16.9); Immature Granulocytes % 0.5 % (0-4); Lymphocytes # 1.5 K/mcL (0.6-4.6); Lymphocytes % 22.6 %; Mean Corpuscular HGB Conc 31.2 g/dL (31.6-35.5); Mean Corpuscular Hemoglobin 30.5 pg (28.0-33.3); Mean Corpuscular Volume 97.8 fL (83.0-100.0); Mean Platelet Volume 12.8 fL (9.4-12.4); Monocytes # 0.3 K/mcL (0.0-1.3); Monocytes % 4.9 %; Neutrophils # 4.6 K/mcL (1.6-8.9); Red Blood Count 4.65 M/mcL (4.19-5.50); Red Cell Distribution Width 14.3 % (11.5-14.5); Segmented Neutrophils % 69.2 %
[2018-11-06 10:13] LABS: BUN/Creatinine Ratio 11 (6-26); Blood Urea Nitrogen 11 mg/dL (8-23); Calcium 9.3 mg/dL (8.6-10.3); Carbon Dioxide 20 mEq/L (23-29); Chloride 107 mEq/L (98-107); Glucose 90 mg/dL (70-105); Osmolality,Calculated 291 (280-300); Potassium 4.1 mEq/L (3.5-5.1); Sodium 141 mEq/L (136-145); eGFR For Non-African Americans > 60 (> 60)
[2018-11-06 10:23] LABS: Mean Platelet Volume 9.9 fL (9.4-12.4)
--- NOTE | 2018-11-06 10:54 | Cardiology Consult Note ---
<Chano Mendez - Last Filed: 11/06/18 14:38> Date of Encounter: 11/06/18 Time of Encounter: 10:00 Assessment and Plan (1) Abnormal stress test Current Visit: Yes Status: Acute Has been experiencing intermittent chest pain and dizziness for approximately 2- 3 months Stress test from 10/27/18 with the following findings: - Mildly positive for ischemia with small sized reversible perfusion defect in mid-inferoseptal segments - Positive for infarct with small sized fixed perfusion defect in the apical lateral and mid-inferolateral segments consistent with prior infarct EKG without ischemic changes, sinus bradycardia Troponins negative x3 Risks, benefits, and alternative treatments discussed with patient and his . Recommend LHC. Pt and his agreed to treatment plan. Pt has been NPO. Plan for LHC later today. (2) HTN (hypertension) Current Visit: Yes Status: Chronic Uncontrolled with presenting BP of 183/89 Pt reports SBP was >200 at PCP's office prior to ED arrival Continue Clonidine 0.1mg QHS Continue Losartan 100mg daily Continue prn Hydralazine Home Metoprolol is currently being held in the setting of bradycardia Qualifiers: Hypertension type: essential hypertension Qualified Code(s): I10 - Essential (primary) hypertension (3) CAD (coronary artery disease) Current Visit: Yes Status: Chronic Known history of CAD with previous stents, most recent in 2005 Continue ASA 81mg daily Continue Simvastatin 40mg at this time, may require escalation to high-intensity statin Metoprolol currently being held with bradycardia Qualifiers: Coronary Disease-Associated Artery/Lesion type: [place] artery [place] vs. transplanted heart: [place] heart Associated angina: without angina Qualified Code(s): I25.10 - Atherosclerotic heart disease of [place] coronary artery without angina pectoris (4) AAA (abdominal aortic aneurysm) Current Visit: Yes Status: Chronic As seen on CTA dissection study S/P endograft repair with Dr Lorenzo stable and without leak Continue BP control Qualifiers: Presence of rupture: without rupture Qualified Code(s): I71.4 - Abdominal aortic aneurysm, without rupture (5) Bradycardia Current Visit: Yes Status: Acute As seen on EKG and telemetry with rate in 40s Holding home Metoprolol at this time Discussion w patient/family: The assessment and plan as outlined above was discussed with the patient and/or family members who expressed understanding and agreement. All questions were answered. Thank you for involving us in the care of your patient. Please call with any questions. History of Present Illness Consult date: 11/06/18 Requesting physician: Lane Delgado Consult reason: Intermittent chest pain, bradycardia, and dizziness Chief complaint: Elevated BP History of present illness: Mr. Leon is a 73 year old male with PMH of CAD with previous stents, HTN, AAA, asthma, COPD, arthritis, and chronic back pain. He was sent to the ED from his PCP's office for elevated blood pressure. Pt reports intermittent episodes of shortness of breath, bradycardia, and dizziness for approximately the past 2-3 months. He has been following with [facility] as outpatient and most recently had an abnormal stress test result. Incidentally he was scheduled for outpatient follow up of the stress test today. EKG from the ED showed sinus bradycardia without ischemic changes. CXR was negative. CTA dissection study revealed known AAA s/p endograft repair without leak, and nodular enlargement of the prostate. Pt seen and examined at bedside. Denies any current chest pain or shortness of breath. States his blood pressure has been persistently elevated at home recently, and his heart rate has been between the 40s and 60s for the past couple of months. Reports his most recent LHC was back in 2005, but he is concerned it has been awhile since any cardiac intervention. Denies any shortness of breath, vision changes, syncope, numbness, or tingling. Does admit to recent headaches which he attributed to his home nitrate which was stopped. Past Med Surg Social Fam HX - Past Medical History Medical history: aortic aneurysm, arthritis, asthma, COPD, coronary artery disease, hyperlipidemia, hypertension, myocardial infarction Additional medical history: ventricular hypertrophy, chronic back pain Psychiatric history: no psych history - Past Surgical History Surgical History: herniorrhaphy, tonsilectomy Additional surgical history: stents x5, aneurysm, angioplasty of coronary artery - Social History Smoking Status: Former smoker Smokeless Tobacco Status: No Alcohol use: none Drug use: none - Family History Father Living Status: Hx Family Cardiac Disorders: Yes Medications and Allergies Aspirin Enteric Coated [Aspirin EC] 81 mg PO HS 06/13/17 [History] Cyanocobalamin (Vitamin B-12) [Vitamin B12] 1,000 mcg PO DAILY 06/13/17 [History] Escitalopram [Lexapro] 20 mg PO DAILY 06/13/17 [History] Folic Acid 1 mg PO DAILY@1600 06/13/17 [History] HYDROcodone/Acet 10/325 mg [[place] 10-325 mg] 2 tab PO Q8H 06/13/17 [History] Methotrexate [Otrexup] 20 mg PO TU 06/13/17 [History] Nitroglycerin [Nitrostat] 0.4 mg SL Q5M PRN 06/13/17 [History] Omeprazole [PriLOSEC] 40 mg PO DAILY 06/13/17 [History] Simvastatin [Zocor] 40 mg PO HS 06/13/17 [History] cloNIDine HCl [CloNIDine HCl] 0.1 mg PO HS 06/13/17 [History] Losartan Potassium [Cozaar] 100 mg PO DAILY 11/05/18 [History] Metoprolol [Lopressor] 25 mg PO BID 11/05/18 [History] traZODone [TraZODone] 50 mg PO HS 11/05/18 [History] Allergy/AdvReac Type Severity Reaction Status Date / Time Iodinated Contrast- Oral and AdvReac Hives Verified 09/02/17 07:35 IV Dye iodine AdvReac Hives Verified 09/02/17 07:35 All Systems Review: The remainder of the systems were reviewed and are negative - Constitutional Constitutional: headache(s), weakness, no chills, no fever(s), no night sweats - EENT Eyes: no blurred vision, no loss of vision - Cardiovascular Cardiovascular: chest pain at rest, dyspnea at rest, no chest pain with exertion, no dyspnea on exertion, no irregular heart rhythm, no lightheadedness, no palpitations, no syncope - Respiratory Respiratory: no cough, no dyspnea, no wheezing - Gastrointestinal Gastrointestinal: no abdominal pain, no constipation, no diarrhea, no nausea - Genitourinary Genitourinary: no dysuria, no hematuria - Musculoskeletal Musculoskeletal: back pain (chronic), no arthralgias, no myalgias - Integumentary Integumentary: no erythema, no rash, no unusual bruising - Neurological Neurological: dizziness, no numbness, no syncope, no tingling - Hematological/Lymphatic Hematologic/Lymphatic: no easy bleeding, no easy bruising Physical Examination Vital Signs, Last 4 Hours Temp Pulse Pulse Pulse Pulse Resp BP 11/06/18 09:18 11/06/18 08:05 62 78 72 11/06/18 07:38 98.5 F 63 20 166/85 BP BP BP Pulse Ox 11/06/18 09:18 96 11/06/18 08:05 180/81 167/82 166/87 11/06/18 07:38 96 General: Conversant, No Apparent Distress HEENT: Atraumatic, Normocephaly, Mucus Membranes Moist Neck: No JVD, Normal carotid pulses Cardiac: Reg Rate and Rhythm, Normal S1 and S2, No Murmur Lungs: Normal Breath Sounds, No Wheeze, Rales, Rhonchi Neuro: Alert and responsive, No focal deficits noted Abdomen: Soft, Non-Tender Skin: No rashes noted on visualized skin Musculoskeletal: No Chest Wall Tenderness Extremities: No Clubbing, No Cyanosis, No Edema, Normal Pulses Results 11/06/18 08:35 11/06/18 08:35 Lab Results 11/05/18 11/05/18 11/05/18 13:52 13:52 13:52 WBC Hgb Hct Plt Count INR 1.1 APTT 35.2 Sodium Potassium Chloride Carbon Dioxide BUN Creatinine Glucose Calcium Total Bilirubin 0.7 AST 11 L ALT 5 L Alkaline Phosphatase 54 Troponin I B-Natriuretic Peptide 314 H Lipase 14 11/05/18 11/05/18 11/06/18 13:52 13:52 02:28 WBC 7.5 Hgb 13.4 Hct 41.9 Plt Count 258 INR APTT Sodium 140 Potassium 4.1 Chloride 105 Carbon Dioxide 26 BUN 13 Creatinine 1.03 Glucose 105 Calcium 9.5 Total Bilirubin AST ALT Alkaline Phosphatase Troponin I < 0.03 < 0.03 B-Natriuretic Peptide Lipase 11/06/18 11/06/18 11/06/18 08:35 08:35 08:35 WBC 6.6 Hgb 14.2 Hct 45.5 Plt Count TNP INR APTT Sodium 141 Potassium 4.1 Chloride 107 Carbon Dioxide 20 L BUN 11 Creatinine 1.03 Glucose 90 Calcium 9.3 Total Bilirubin AST ALT Alkaline Phosphatase Troponin I < 0.03 B-Natriuretic Peptide Lipase - Imaging and Cardiology Chest Xray: report reviewed, image reviewed Stress Test: report reviewed, image reviewed Holter: report reviewed - EKG Interpretation EKG results cardiology: personally reviewed, sinus rhythm, other (bradycardic with rate of 45 bpm) Consult Discharge Plan - Plan Referrals: Gopi David MD [Primary Care Provider] - <Chandu Mendoza A - Last Filed: 11/06/18 15:48> Date of Encounter: 11/06/18 - Attending Attestation I have personally performed a face to face evaluation on this patient. I have r eviewed and agree with the documented findings and care plan as documented by the resident. History and Exam by me shows: 73 y/o M with history of CAD, AAA s/p endovascular repair, HTN, admitted for worsening chest pain on [id number] exertion. Had a pharmacological nuclear stress test last week which was mildly positive for ischemia in the mid inferoseptal segment. Given current symptoms we will proceed with cardiac catheterization. Risks, benefits, alternatives were expecting to the patient and he wishes to proceed. All questions were answered. Continue aspirin, statin, ARB. Not on beta alfredo because of bradycardia Chandu Tom MD FACC Assessment and Plan Discussion w patient/family: The assessment and plan as outlined above was discussed with the patient and/or family members who expressed understanding and agreement. All questions were answered. Thank you for involving us in the care of your patient. Please call with any questions. History of Present Illness History of present illness: Mr. Leon is a 73 year old male All Systems Review: The remainder of the systems were reviewed and are negative Results 11/06/18 08:35 11/06/18 08:35 Lab Results 11/06/18 11/06/18 11/06/18 02:28 08:35 08:35 WBC 6.6 Hgb 14.2 Hct 45.5 Plt Count TNP Sodium 141 Potassium 4.1 Chloride 107 Carbon Dioxide 20 L BUN 11 Creatinine 1.03 Glucose 90 Calcium 9.3 Troponin I < 0.03 11/06/18 08:35 WBC Hgb Hct Plt Count Sodium Potassium Chloride Carbon Dioxide BUN Creatinine Glucose Calcium Troponin I < 0.03
--- NOTE | 2018-11-06 13:46 | Event Note ---
Date of Encounter: 11/06/18 Time of Encounter: 13:35 Seen and examined at bedside. Patient is new to me, information obtained from chart review and patient report. Of note patient was seen earlier today by nocturnal hospitalist. Still having some mild chest discomfort but overall improved from arrival. No shortness of breath. Also complaining of chronic back pain. Plan for LHC either later today or tomorrow. CAD: per hx. Recent outpatient stress test abnormal. Now with recurrent chest pain. LHC planned later today. Echo pending. He did new home ASA. Cardiology following HTN: per hx. BP not well controlled. Cont home BP except BB with bradycardia medications. Monitor BP and titrate PRN. PRN IV hydralazine AAA: per hx. CT showed knojw AAA endograft repair. No endoleak. Stable appearance from prior imaging. Follow-up outpatient as previously planned Chronic back pain: per hx. Cont home pain medication regimen DVT prophylaxis: lovenox
[2018-11-06] MEDS: *HR* HYDROcodone/Acet 10/325 mg TABLET PO PRN ×2 (13:49→20:52)
[2018-11-06] MEDS ORDERED: 0.9 % Sodium Chloride 1,000 ML ONE ×3 (14:23→19:37)
[2018-11-06] MEDS ORDERED: Heparin 1,000 UNITS/500 mL 500 ML ONE (14:24)
[2018-11-06] MEDS ORDERED: ISOVUE-370 200 ML INFUS..BTL ONE ×2 (14:24→15:22)
[2018-11-06] MEDS ORDERED: *HR* Heparin 10,000 UNIT/10 ML VIAL ONE (14:24)
[2018-11-06] MEDS ORDERED: Nitroglycerin 1,000 MCG/10 ML VIAL IV ONE (14:27)
[2018-11-06] MEDS ORDERED: methylPREDNISolone 125 MG/2 ML VIAL ONE (14:56)
--- NOTE | 2018-11-06 15:11 | Pre-Sedation Evaluation ---
Pre-sedation evaluation - Pre-sedation checklist Date of procedure: 11/06/18 Procedure: left heart cath Recent Vitals: Last Vital Signs Temp 98.5 F 11/06/18 11:00 Pulse 61 11/06/18 11:00 Resp 20 11/06/18 11:00 BP 196/83 11/06/18 11:00 Pulse Ox 97 11/06/18 11:00 H&P (including ROS) documented in medical record: Yes Previous reaction to sedatives/anesthetics: No Dietary Status: NPO after Midnight Dentition: No loose teeth or bridges, poor dentition ASA Classification *see protocol: CLASS II-Mild systemic disease Cardiac Registry (Cardio Only) - Functional Capacity Functional Capacity: >=4 METS with symptoms - Clincal Frailty Scale Clinical Frailty Scale: Managing Well
[2018-11-06] MEDS ORDERED: Tirofiban 12.5 MG/250ML 12.5 MG/250 ML BAG ONE (15:22)
[2018-11-06] MEDS ORDERED: Tirofiban 12.5 MG/250ML 12.5 MG/250 ML BAG IVC SCH (16:15)
--- NOTE | 2018-11-06 18:17 | Invasive Diagnostic Lab Proc ---
Name: Usman Leon Date of Study: 11/06/2018 Date: 1945 Ht: 66.1in Medical Record#: [id number] Age: 73 Wt: 209.44lb Gender: Male BSA: 2.04 Order #: [id number] BMI: 33.66 Physicians Procedure Physician: Reji Rosales MD Referring MD: Referring MD: Staff Name Position Time In Divina Bermudez RN Monitor 02:59 PM Connie Alyson RT (R) Scrub 02:59 PM Beth Mason RN Dish Technician 02:59 PM Indications Indication Abnormal Test - Stress Procedures Performed Procedure L HRT ARTERY/VENTRICLE ANGIO PRQ CARDIAC ANGIOPLAST 1 ART Pre-Procedure Checklist Informed consent is complete signed and on chart. H&P is on chart. ID band is on and ID verified with patient. Patient NPO for procedure The procedure was described for the patient and questions were answered. Blood Pressure: 196/83 ECG is on chart. Rhythm: NSR Plan of Care Patient will tolerate the procedure without complications. Adequate level of comfort will be maintained. Hemodynamics will remain stable Patient will recover from procedure without complications. Respiratory function will be maintained. Cardiac rhythm will remain stable. Patient temperature will be maintained. Patient and/or family have verbalized understanding of the procedure. Patient Education Chief Complaint/Reason for Test: Cardiac Cath Developmental Category: Geriatric (65+ years) Developmentally Appropriate for Age: Yes Learning Barriers: None Education Needs: Procedure Education Method: Verbal Information Taught: Cardiac Cath Educational Evaluation: Able to repeat information Intravenous Access Time IV Size Location DC'd Fluid/Drip Rate Units RN 01:15 PM 20g 1 08/07" Patent On Arrival Rt Antecubital 0.9NaCl 25 ml/hr Beth Mason RN Allergies Iodinated Contrast- Oral and IV Dye iodine Vital Signs Time BP (mmHg) HR (bpm) O2 Sat. RR (bpm) LOC 02:59 PM / % 5 = Fully awake and oriented or at pre-proc level 02:59 PM / % 4 = Oriented but drowsy 03:14 PM / % 4 = Oriented but drowsy 03:29 PM / % 4 = Oriented but drowsy 03:44 PM / % 4 = Oriented but drowsy 03:02 PM 181 / 95 76 93 % 14 03:07 PM 181 / 88 78 91 % 17 03:12 PM 173 / 91 78 90 % 03:17 PM 185 / 98 78 91 % 22 03:22 PM 190 / 101 81 90 % 03:27 PM 179 / 84 82 91 % 15 03:32 PM 179 / 95 80 92 % 03:37 PM 161 / 74 64 93 % 18 03:43 PM 191 / 96 78 93 % 33 03:47 PM 170 / 109 77 91 % 03:52 PM 170 / 91 82 92 % 03:57 PM 171 / 87 77 96 % 10 04:10 PM 187 / 91 77 91 % 16 5 = Fully awake and oriented or at pre-proc level 04:30 PM 188 / 94 70 91 % 16 5 = Fully awake and oriented or at pre-proc level 04:45 PM 192 / 91 67 95 % 16 5 = Fully awake and oriented or at pre-proc level 05:00 PM 181 / 88 64 95 % 16 5 = Fully awake and oriented or at pre-proc level 05:15 PM 187 / 94 63 95 % 16 5 = Fully awake and oriented or at pre-proc level 05:30 PM 192 / 97 73 94 % 16 5 = Fully awake and oriented or at pre-proc level 05:45 PM 184 / 95 66 92 % 16 5 = Fully awake and oriented or at pre-proc level 06:00 PM 181 / 95 81 92 % 16 5 = Fully awake and oriented or at pre-proc level Procedural Medications Time Medication Dose Units Method Given By 02:59 PM Oxygen 2 L/min nasal cannula Beth Mason RN 03:00 PM Benadryl 50 mg Intravenous Beth Mason RN 03:00 PM Solu-medrol 125 mg Intravenous Beth Mason RN 03:15 PM Lidocaine 2% 19 ml Subcutaneous Reji Rosales MD 03:27 PM Heparin 4500 units Intravenous Beth Mason RN 03:28 PM Aggrastat Bolus: 46 ml Intravenous Beth Mason RN 03:28 PM Aggrastat 12.5mg/250ml 16.5 ml/hr Intravenous Beth Mason RN 03:43 PM Nitroglycerin 200 mcg Intracoronary Jason Rosales MD 03:55 PM Plavix 600 mg Orally Bteh Mason RN ASA Classification: CLASS II- Mild systemic disease (i.e. well-controlled diabetes, hypertension, asthma, cigarette smoking) Elmo Score Preprocedure Postprocedure Activity 2- Moves 4 extremities sustained head lift Activity 2- Moves 4 extremities sustained head lift Circulation 2- SBP +/= 20 points of pre-anesthetic level Circulation 2- SBP +/= 20 points of pre-anesthetic level Consciousness 2- Awake and alert oriented x 3 Consciousness 2- Awake and alert oriented x 3 O2 Saturation 2- Able to maintain O2 satruation of 92% on room air O2 Saturation 2- Able to maintain O2 satruation of 92% on room air Respiratory 2- Able to deep breathe and cough well Respiratory 2- Able to deep breathe and cough well Total Score 10 Total Score 10 Contrast Agent: Isovue Diagnostic Contrast: 181 ml Total Contrast: 181 ml Fluoro Dose: 67 mGy Activated Clotting Time Time Seconds to Clot 03:59 PM 291 05:15 PM 186 Procedure Log Time Note Enter By 02:58 PM 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 well-controlled diabetes, hypertension, asthma, cigarette smoking) scoates 02:58 PM Meet and greet completed scoates 02:58 PM Sign in performed according to hospital policy. Informed consent was obtained. scoates 02:58 PM Procedure start 14:58 scoates 02:59 PM Time: 14:58 Patient comfortable and pain free: Yes scoates 02:59 PM Time: 14:59LOC: 5 = Fully awake and oriented or at pre-proc level scoates 02:59 PM Divina Bermudez RN Position: Monitor Time in: 14:59 scoates 02:59 PM Alysno Rosales RT (R) Position: Scrub Time in: 14:59 scoates 02:59 PM Beth Mason RN Position: Dish Technician Time in: 14:59 scoates 02:59 PM Patient charges- Angio tray pack, Navilyst 3mm J, Pulse Oximetry and ACIST tubing and transducer scoates 02:59 PM Case Delayed no scoates 02:59 PM Hair removed from procedure site in holding area using clippers. Bilateral groin prepped with Chloraprep by Beth Mason RN, then patient was draped. Skin intact. scoates 02:59 PM Time: 14:59 Oxygen on at 2 L/min per nasal cannula by Beth Mason RN scoates 03:00 PM Time: 15:00 Benadryl 50 mg Intravenous Given by Beth Mason RN scoates 03:00 PM Time: 15:00 Solu-medrol 125 mg Intravenous Given by Beth Mason RN scoates 03:01 PM CathStat 03:01 PM Vitals capture started with the following parameters, Patient=Adult, Interval=5 min, Initial Wdteichp=981 mmHg, Deflation Rate=5 mmHg, Cuff placed on Right Arm 03:02 PM HR=76 bpm, JAVV=084/95 mmhg, SpO2=93.0 %, Resp=14 B/min 03:07 PM HR=78 bpm, JDPH=403/88 mmhg, SpO2=91.0 %, Resp=17 B/min, Comment=nsr 03:12 PM HR=78 bpm, MWIP=445/91 mmhg, SpO2=90.0 %, Comment=nsr 03:14 PM Time: 14:59 Patient comfortable and pain free: Yes scoates 03:14 PM Time: 14:59LOC: 4 = Oriented but drowsy scoates 03:15 PM Time out was performed according to hospital policy. Conscious sedation and anesthesia was achieved (see medication log with in this report above) scoates 03:16 PM Time: 15:15 19 ml Lidocaine 2% to right groin Subcutaneous Given by Reji Rosales MD scoates 03:17 PM HR=78 bpm, ZDJA=284/98 mmhg, SpO2=91.0 %, Resp=22 B/min, Comment=nsr 03:18 PM Micro-Introducer Kit utilized for sheath placement scoates 03:18 PM 4mls of contrast hand injected scoates 03:18 PM Access obtained by percutaneous puncture. 6Fr 11cm Terumo [place] sheath placed in right Femoral artery. [id number] scoates 03:18 PM 5Fr FR 4 catheter inserted over the wire [facility] scoates 03:19 PM Catheter crossed the aortic valve and was selectively placed in the left ventricle. Pressures recorded on pullback for left heart catheterization. scoates 03:19 PM Recorded Pressure: Ao, HR=72, Condition=Condition 1 (Aorta) Ao 215/96/143 03:20 PM RCA angiography performed in multiple views. scoates 03:20 PM Coronary Dominance: right scoates 03:22 PM Catheter removed scoates 03:22 PM 5Fr FL 4 catheter inserted over the wire DNC scoates 03:22 PM HR=81 bpm, BSES=226/101 mmhg, SpO2=90.0 %, Comment=nsr 03:22 PM Recorded Pressure: Ao, HR=82, Condition=Condition 1 (Aorta) Ao 192/108/146 03:22 PM Catheter removed scoates 03:23 PM Pressure channel 1 zero failed. 03:23 PM Pressure channel 1 zeroed. 03:23 PM 5Fr FL5 catheter inserted over the wire [id number] scoates 03:24 PM Lesion found in Mid RCA. Pre Stenosis: 90 Pre ZIA Flow: 3: Complete and Brisk Flow/Perfusion scoates 03:24 PM Lesion found in Right PDA. Pre Stenosis: 40 Pre ZIA Flow: scoates 03:26 PM Recorded Pressure: Ao, HR=81, Condition=Condition 1 (Aorta) Ao 185/98/137 03:27 PM LCA angiography performed in multiple views. scoates 03:27 PM HR=82 bpm, JSMI=766/84 mmhg, SpO2=91.0 %, Resp=15 B/min, Comment=nsr 03:27 PM Time: 15:27 Heparin 4500 units Intravenous Given by Beth Mason RN scoates 03:28 PM Time: 15:28 Aggrastat Bolus: 46 ml Intravenous Given by Beth Mason RN Winn pump scoates 03:28 PM Time: 15:28 Aggrastat 12.5mg/250ml 16.5 ml/hr Intravenous Given by Beth Mason RN Winn pump scoates 03:29 PM Time: 15:14 Patient comfortable and pain free: Yes scoates 03:29 PM Time: 15:14LOC: 4 = Oriented but drowsy scoates 03:29 PM PCI Status Urgent scoates 03:29 PM Inflation device was opened. scoates 03:29 PM .014 [employer] [place] 190cm guide wire across target lesion- successful. reused? No scoates 03:30 PM 6Fr JR 4 Cordis guide catheter was used to cannulate the PCI vessel successfully. reused? No scoates 03:30 PM 2.5 mm x 15mm NC Emerge balloon across target lesion- successful. reused? No scoates 03:32 PM HR=80 bpm, RCZF=126/95 mmhg, SpO2=92.0 %, Comment=nsr 03:33 PM Balloon inflated @ 12 wilbert for 8 seconds scoates 03:35 PM Balloon catheter removed intact. scoates 03:35 PM 3.5 mm x 15mm NC Emerge balloon across target lesion- successful. reused? No scoates 03:37 PM Balloon inflated @ 16 wilbert for 20 seconds scoates 03:37 PM HR=64 bpm, SUEO=145/74 mmhg, SpO2=93.0 %, Resp=18 B/min, Comment=nsr 03:38 PM Balloon inflated @ 14 wilbert for 30 seconds scoates 03:39 PM Balloon inflated @ 16 wilbert for 26 seconds scoates 03:40 PM Balloon inflated @ 20 wilbert for 37 seconds scoates 03:41 PM Balloon inflated @ 18 wilbert for 20 seconds scoates 03:43 PM HR=78 bpm, NPKW=485/96 mmhg, SpO2=93.0 %, Resp=33 B/min, Comment=nsr 03:43 PM Time: 15:43 Nitroglycerin 200 mcg Intracoronary Given by Jason Rosales MD scoates 03:44 PM Time: 15:29LOC: 4 = Oriented but drowsy scoates 03:44 PM Time: 15:29 Patient comfortable and pain free: Yes scoates 03:45 PM Balloon catheter removed intact. scoates 03:46 PM 4.0 mm x 12mm NC Emerge balloon across target lesion- successful. reused? No scoates 03:46 PM Recorded Pressure: Ao, HR=85, Condition=Condition 1 (Aorta) Ao 140/75/103 03:47 PM Balloon inflated @ 16 wilbert for 20 seconds scoates 03:47 PM HR=77 bpm, CUBX=813/109 mmhg, SpO2=91.0 %, Comment=nsr 03:47 PM Balloon inflated @ 18 wilbert for 32 seconds scoates 03:49 PM Balloon catheter removed intact. scoates 03:51 PM Guide catheter removed intact. scoates 03:51 PM Guide wire removed intact. scoates 03:52 PM Bolus angiogram of right Femoral complete: 4 ml/sec for a total of 7 mls scoates 03:52 PM HR=82 bpm, BARX=489/91 mmhg, SpO2=92.0 %, Comment=nsr 03:53 PM Procedure completed at 15:52 11/06/2018 scoates 03:53 PM Did you address ZIA flow and Dominance? Yes scoates 03:53 PM Sign out completed: Radiation Dose 819.06 mGy, 67.4 Gy/cm2 Fluoro Time: 11.5 Isovue 370 - 200ml contrast 181 ml given by Reji Rosales MD. Complications: None. 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 Sedation minutes 53. Cardiac Rehab Consult needed: Yes. Confirmed administered medications: Yes scoates 03:53 PM Isovue 370 - 200ml,2 Bottle(s) used. scoates 03:54 PM Arterial sheath pulled, Mynx closure device used and was Successful [id number] S/N. scoates 03:55 PM Time: 15:55 Plavix 600 mg Orally Given by Beth Mason RN scoates 03:57 PM HR=77 bpm, VTLV=461/87 mmhg, SpO2=96.0 %, Resp=10 B/min 03:59 PM Time: 15:44 Patient comfortable and pain free: Yes scoates 03:59 PM Time: 15:44LOC: 4 = Oriented but drowsy scoates 03:59 PM At 15:59 the ACT was 291 seconds. scoates 03:59 PM Sheath left in place to be pulled on floor/holding area scoates 04:00 PM Estimated Blood Loss: less than 20cc scoates 04:00 PM Post ECG NSR scoates 04:00 PM Post Blood Pressure 171/87 scoates 04:00 PM 16:00 Post Pulses Bilateral DP & PT 2+ scoates 04:00 PM Information taught Cardiac Cath and PCI scoates 04:00 PM Education needs Procedure, Plan of Care, and Responsibilities of Patient in Care scoates 04:00 PM Learning barriers :None scoates 04:00 PM Education Methods Verbal scoates 04:00 PM Education evaluation Able to repeat information scoates 04:00 PM Site status No bleeding/hematoma - Rt Groin as reported by Sites, Alyson RT (R) at 16:00 scoates 04:00 PM Opsite applied scoates 04:00 PM Plavix, Effient or Brilinta given Yes scoates 04:10 PM Report given to Eric FREEMAN Pt taken to Holding room Room #3. 16:10 scoates 04:10 PM Delay to floor Bed availability scoates 04:10 PM Patient out of room: 16:10 scoates 04:11 PM PAtient arrive to HR 2 mprater 04:11 PM Family placed in consult room. scoates 04:11 PM Complications: None scoates 04:[address] Rosales notified of patient's increased blood pressure of192/91. New orders received for nitro patch 0.4 mg. kwitte 05:16 PM Patient voided 200 cc clear dark yellow per urinal. kwitte 05:16 PM Nitroglycerin 0.4mg TD patch applied to upper left arm as per Dr. Rosales's order. kwitte 06:04 PM Report given to Linette FREEMAN Pt taken to Holding room Room #2N3. 18:03 kwitte 06:04 PM Complications: None kwitte 06:04 PM Delay to floor No kwitte 06:04 PM Patient out of room: 18:04 kwitte Complications Complication None None None Hemodynamics Pressures Site Systolic/A Wave Diastolic/V Wave Mean AO 215 96 143 AO 192 108 146 AO 185 98 137 AO 140 75 103 Post Procedure Information Blood Pressure: 171/87 mmHg Rhythm: NSR Post procedural instructions were given Site Checks Time Location Status Staff Sheath In? Note 04:00 PM Rt Groin No bleeding/hematoma Sites, Alyson RT (R) Yes 04:10 PM Rt Groin No bleeding/ No Hematoma Yolanda Hurst RN Yes 04:30 PM Rt Groin No bleeding/ No Hematoma Eric Li RN Yes 04:45 PM Rt Groin No bleeding/ No Hematoma Eric Li RN Yes 05:00 PM Rt Groin No bleeding/ No Hematoma Eric Li RN Yes 05:15 PM Rt Groin No bleeding/ No Hematoma Eric Li RN Yes 05:30 PM Rt Groin No bleeding/ No Hematoma Eric Li RN Yes 05:45 PM Rt Groin No bleeding/ No Hematoma Eric Li RN Yes 06:00 PM Rt Groin No bleeding/ No Hematoma Eric Li RN Yes Pulses Time Site Pre-Procedure Post-Procedure Note 11/06/2018 1:15:00 PM Bilateral DP & PT 2+ 11/06/2018 1:16:00 PM Bilateral radial 2+ 4:00:00 PM Bilateral DP & PT 2+ 11/06/2018 4:10:00 PM Bilateral DP & PT 2+ 11/06/2018 4:30:00 PM Bilateral DP 2+ 11/06/2018 4:45:00 PM Bilateral DP 2+ 11/06/2018 5:15:00 PM Bilateral DP 2+ 11/06/2018 5:45:00 PM Bilateral DP 2+ Updated by Eric Li RN on 11/06/2018 6:06:15 PM Eric Li RN electronically signed on 11/06/2018 6:06:38 PM with status of Final
[2018-11-06] MEDS: Nitroglycerin 0.4 MG PATCH.TD24 TD SCH (18:41)
[2018-11-06] MEDS ORDERED: *HR* Atropine Sulfate 1 MG/10 ML SYRINGE ONE (19:37)
[2018-11-06] MEDS ORDERED: traZODone 50 MG TABLET PO SCH (21:00)
[2018-11-06] MEDS ORDERED: cloNIDine HCl 0.1 MG TABLET PO SCH (21:00)
[2018-11-07] MEDS: *HR* HYDROcodone/Acet 10/325 mg TABLET PO PRN ×2 (04:05→12:54)
[2018-11-07] MEDS ORDERED: *HR* Enoxaparin 40 MG/0.4 ML SYRINGE SQ SCH (06:00)
[2018-11-07 07:13] LABS: Hematocrit 36.4 % (37.5-50.1); Hemoglobin 11.8 g/dL (12.9-16.9); Mean Corpuscular HGB Conc 32.4 g/dL (31.6-35.5); Mean Corpuscular Hemoglobin 30.1 pg (28.0-33.3); Mean Corpuscular Volume 92.9 fL (83.0-100.0); Mean Platelet Volume 10.7 fL (9.4-12.4); Platelet Count 231 K/mcL (140-400); Red Blood Count 3.92 M/mcL (4.19-5.50); Red Cell Distribution Width 14.1 % (11.5-14.5)
[2018-11-07 07:36] LABS: Alanine Aminotransferase 4 Units/L (7-52); Albumin 3.4 g/dL (3.5-5.7); Albumin/Globulin Ratio 1.8 (1.1-2.2); Alkaline Phosphatase 41 Units/L (34-104); Aspartate Amino Transferase 9 Units/L (13-39); BUN/Creatinine Ratio 13 (6-26); Bilirubin,Total 0.4 mg/dL (0.3-1.0); Blood Urea Nitrogen 13 mg/dL (8-23); Calcium 8.8 mg/dL (8.6-10.3); Carbon Dioxide 26 mEq/L (23-29); Chloride 106 mEq/L (98-107); Globulin 1.9 g/dL (2.4-3.5); Glucose 194 mg/dL (70-105); Osmolality,Calculated 291 (280-300); Potassium 4.4 mEq/L (3.5-5.1); Sodium 138 mEq/L (136-145); Total Protein 5.3 g/dL (6.4-8.9); eGFR For Non-African Americans > 60 (> 60)
[2018-11-07] MEDS ORDERED: Aspirin 81 MG TAB.CHEW PO SCH (09:00)
[2018-11-07] MEDS: Nitroglycerin 0.4 MG PATCH.TD24 TD SCH (09:47)
--- NOTE | 2018-11-07 10:51 | Internal Med Progress Note ---
Hospitalist Progress Note - Encounter Date of Encounter: 11/07/18 Time of Encounter: 10:51 - Exam Vitals: Temp Pulse Resp BP Pulse Ox 97.9 F 81 18 149/79 93 11/07/18 06:53 11/07/18 06:53 11/07/18 06:53 11/07/18 06:53 11/07/18 06:53 - Assessment and Plan (1) AAA (abdominal aortic aneurysm) Current Visit: Yes Status: Chronic (2) HTN (hypertension) Current Visit: Yes Status: Chronic (3) CAD (coronary artery disease) Current Visit: Yes Status: Chronic (4) Bradycardia Current Visit: Yes Status: Acute (5) Abnormal stress test Current Visit: Yes Status: Acute - Time Spent with Patient Total time spent is greater than 50% in coordination of care (as documented) at patient's floor/unit and/or counseling patient: Internal Medicine: Result - Labs CBC & Chem 7: 11/07/18 06:45 11/07/18 06:45 Labs: Short CBC 11/07/18 Range/Units 06:45 WBC 10.1 D (4.3-11.1) K/mcL Hgb 11.8 L D (12.9-16.9) g/dL Hct 36.4 L (37.5-50.1) % Plt Count 231 (140-400) K/mcL BMP 11/07/18 06:45 Sodium 138 Potassium 4.4 Chloride 106 Carbon Dioxide 26 BUN 13 Creatinine 0.98 Glucose 194 H Calcium 8.8 Liver Function 11/07/18 Range/Units 06:45 Total Bilirubin 0.4 (0.3-1.0) mg/dL AST 9 L (13-39) Units/L ALT 4 L (7-52) Units/L Alkaline Phosphatase 41 (34-104) Units/L Albumin 3.4 L (3.5-5.7) g/dL - ABG Interpretation ABG results: PT/INR, D-dimer PT 12.5 Seconds (9.4-12.1) H 11/05/18 13:52 Consult Discharge Plan - Plan Referrals: Gopi David MD [Primary Care Provider] - (1) AAA (abdominal aortic aneurysm) Qualifiers: Presence of rupture: without rupture Qualified Code(s): I71.4 - Abdominal aortic aneurysm, without rupture (2) HTN (hypertension) Qualifiers: Hypertension type: essential hypertension Qualified Code(s): I10 - Essential (primary) hypertension (3) CAD (coronary artery disease) Qualifiers: Coronary Disease-Associated Artery/Lesion type: [place] artery [place] vs. transplanted heart: [place] heart Associated angina: without angina Qualified Code(s): I25.10 - Atherosclerotic heart disease of [place] coronary artery without angina pectoris
[2018-11-07 12:04] VITALS: BP 167/96
--- NOTE | 2018-11-07 13:19 | Cardiology Progress Note ---
Date of Encounter: 11/07/18 Time of Encounter: 11:30 Assessment and Plan (1) Abnormal stress test Current Visit: Yes Status: Acute Stress test from 10/27/18 with the following findings: - Mildly positive for ischemia with small sized reversible perfusion defect in mid-inferoseptal segments - Positive for infarct with small sized fixed perfusion defect in the apical lateral and mid-inferolateral segments consistent with prior infarct EKG without ischemic changes, sinus bradycardia. Troponins negative x3 [facility] completed and he received PTCA to RCA in-stent restenosis down to 50%. 40% stenosis in RPDA seen. There is no complication from his procedure. He currently denies chest pain. If recurrent symptoms came consider repeat intervention in the future. Importance of DAPT with aspirin and Plavix for one month reviewed with patient. Continue statin and low-dose beta alfredo as tolerated. Echocardiogram pending. If no significant abnormal finding cardiology will sign off. Call with questions. (2) CAD (coronary artery disease) Current Visit: Yes Status: Chronic Known history of CAD with previous stents, most recent in 2005 PTCA RCA 11/06/18. Continue ASA 81mg daily Continue Simvastatin 40mg at this time, may require escalation to high-intensity statin Carvedilol added. Qualifiers: Coronary Disease-Associated Artery/Lesion type: [place] artery [place] vs. transplanted heart: [place] heart Associated angina: without angina Qualified Code(s): I25.10 - Atherosclerotic heart disease of [place] coronary artery without angina pectoris (3) Bradycardia Current Visit: Yes Status: Acute As seen on EKG and telemetry with rate in 40s Home Metoprolol held. HR now noted to be elevated at times. Telemetry review shows frequent PVCs and frequent bigeminy HR up to 122 sinus tachycardia. Min HR 51 at 0430 am. No bradycardia seen in daytime hours. I will add a low-dose carvedilol. (4) AAA (abdominal aortic aneurysm) Current Visit: Yes Status: Chronic As seen on CTA dissection study S/P endograft repair with Dr Lorenzo stable and without leak Continue BP control Qualifiers: Presence of rupture: without rupture Qualified Code(s): I71.4 - Abdominal aortic aneurysm, without rupture Discussion w patient/family: The assessment and plan as outlined above was discussed with the patient and/or family members who expressed understanding and agreement. All questions were answered. Thank you for involving us in the care of your patient. Please call with any questions. Subjective Principal diagnosis: abnormal stress test Interval history: Mr. Leon is status post PTCA to the RCA. He reported minimal chest pain overnight. Complain of headache with a nitro drip that was discontinued. He is now chest pain-free and headache free. He has ambulated in his room without significant symptoms. He notes that his left arm is more red than his right arm. No swelling or pain. States blood pressure cuff was and arm all night. Arm elevated on pillow. 2/4 = pulses noted. Objective Vital Signs, Last 4 Hours Temp Pulse Resp BP Pulse Ox 11/07/18 12:01 98.0 F 69 18 167/96 93 General: Conversant, No Apparent Distress HEENT: Atraumatic, Normocephaly, Mucus Membranes Moist Neck: No JVD, Normal carotid pulses Cardiac: Reg Rate and Rhythm, Normal S1 and S2, No Murmur Lungs: Normal Breath Sounds, No Wheeze, Rales, Rhonchi Neuro: Alert and responsive, No focal deficits noted Abdomen: Soft, Non-Tender Skin: No rashes noted on visualized skin Musculoskeletal: No Chest Wall Tenderness Extremities: No Clubbing, No Cyanosis, No Edema, Normal Pulses, Other (Right groin soft with no hematoma.) Results 11/07/18 06:45 11/07/18 06:45 Lab Results 11/07/18 11/07/18 06:45 06:45 WBC 10.1 D Hgb 11.8 L D Hct 36.4 L Plt Count 231 Sodium 138 Potassium 4.4 Chloride 106 Carbon Dioxide 26 BUN 13 Creatinine 0.98 Glucose 194 H Calcium 8.8 Total Bilirubin 0.4 AST 9 L ALT 4 L Alkaline Phosphatase 41 - Imaging and Cardiology Echo: report reviewed Cardiac cath: report reviewed - EKG Interpretation EKG results cardiology: personally reviewed Consult Discharge Plan - Plan Referrals: Gopi David MD [Primary Care Provider] -
[2018-11-07] MEDS ORDERED: Isosorbide MONOnitrate (24 HR) 30 MG TAB.ER.24H PO SCH (13:30)
--- NOTE | 2018-11-07 16:24 | Discharge Summary ---
- NOTES TO OUTPATIENT PROVIDER Notes to Outpatient Provider: Patient will need follow-up with cardiology in 1-2 weeks. To continue aspirin and Plavix uninterrupted for a month. Metoprolol changed to low-dose Coreg due to bradycardia. simvastatin changed to high- intensity statin. Also started him on imdur for better blood pressure control given AAA. Consider switching clonidine to another antihypertensive. Orders not resulted at time of discharge: Pending orders 11/06/18 16:01 ECG 12 lead ECG [ECG] Stat 11/07/18 06:00 ECG 12 lead ECG [ECG] AM 0600 11/08/18 04:00 CMP [Comprehensive Metabolic Panel] AM 0400 Complete Blood Count w/o Diff [HEME] AM 0400 11/09/18 04:00 CMP [Comprehensive Metabolic Panel] AM 0400 Complete Blood Count w/o Diff [HEME] AM 0400 11/10/18 04:00 CMP [Comprehensive Metabolic Panel] AM 0400 Complete Blood Count w/o Diff [HEME] AM 0400 11/11/18 04:00 CMP [Comprehensive Metabolic Panel] AM 0400 Complete Blood Count w/o Diff [HEME] AM 0400 Date of Encounter: 11/07/18 Time of Encounter: 16:16 - Discharge Diagnosis (1) AAA (abdominal aortic aneurysm) Priority: Secondary Status: Chronic Qualifiers: Presence of rupture: without rupture Qualified Code(s): I71.4 - Abdominal aortic aneurysm, without rupture (2) HTN (hypertension) Priority: Secondary Status: Chronic Qualifiers: Hypertension type: essential hypertension Qualified Code(s): I10 - Essential (primary) hypertension (3) CAD (coronary artery disease) Priority: Secondary Status: Chronic Qualifiers: Coronary Disease-Associated Artery/Lesion type: [place] artery [place] vs. transplanted heart: [place] heart Associated angina: without angina Qualified Code(s): I25.10 - Atherosclerotic heart disease of [place] coronary artery without angina pectoris (4) Bradycardia Priority: Secondary Status: Acute (5) Abnormal stress test Priority: Primary Status: Acute Hospital course: Mr. Leon is a 73 year old male with PMHx of COPD, CAD, HLD, HTN, AAA, chronic back pain came with elevated Blood pressure and intermittent chest pain and bradycardia. Troponins were negative. Had Cardiology was consulted. Patient had abnormal stress stest on 10/27/18. Patient BP was controlled with clonidine, losartan and adding imdur and low dose coreg. Blood pressure closely manage due to history of AAA with repair. Did not have any leak. Metoprolol was intially held due to sinus bradycardia which improved after hence low dose coreg was started. Patient had Cath with PTCA to RCA in-stent restenosis to 50%. Patient started on plavix with aspirin for 1 month. Patient will be discharge with aspirin, plavix, high intensity statin, coreg, imdur, losartan, clonidine. Patient is waiting for final echo report to be discharged if unremarkable. Discharge discussed with: patient, nurse, fitness consultant - Time Spent with Patient Total time spent providing and/or coordinating discharge services: Time spent: Greater than 30 minutes - Discharge Medications Prescriptions: New Carvedilol [Coreg] 3.125 mg PO BIDWM 60 Days #60 tablet Clopidogrel [Plavix] 75 mg PO DAILY 30 Days #30 tablet Isosorbide MONOnitrate (24 HR) [Imdur] 30 mg PO DAILY 30 Days #30 tab.er.24h Atorvastatin [Lipitor] 40 mg PO HS 30 Days #30 tablet Continue Omeprazole [PriLOSEC] 40 mg PO DAILY Escitalopram [Lexapro] 20 mg PO DAILY Aspirin Enteric Coated [Aspirin EC] 81 mg PO HS HYDROcodone/Acet 10/325 mg [[place] 10-325 mg] 2 tab PO Q8H Folic Acid 1 mg PO DAILY@1600 Nitroglycerin [Nitrostat] 0.4 mg SL Q5M PRN PRN Reason: Chest Pain Methotrexate [Otrexup] 20 mg PO TU Cyanocobalamin (Vitamin B-12) [Vitamin B12] 1,000 mcg PO DAILY cloNIDine HCl [CloNIDine HCl] 0.1 mg PO HS Losartan Potassium [Cozaar] 100 mg PO DAILY traZODone [TraZODone] 50 mg PO HS Discontinued Simvastatin [Zocor] 40 mg PO HS Metoprolol [Lopressor] 25 mg PO BID Home Medications: Aspirin Enteric Coated [Aspirin EC] 81 mg PO HS 06/13/17 [History] Cyanocobalamin (Vitamin B-12) [Vitamin B12] 1,000 mcg PO DAILY 06/13/17 [History] Escitalopram [Lexapro] 20 mg PO DAILY 06/13/17 [History] Folic Acid 1 mg PO DAILY@1600 06/13/17 [History] HYDROcodone/Acet 10/325 mg [[place] 10-325 mg] 2 tab PO Q8H 06/13/17 [History] Methotrexate [Otrexup] 20 mg PO TU 06/13/17 [History] Nitroglycerin [Nitrostat] 0.4 mg SL Q5M PRN 06/13/17 [History] Omeprazole [PriLOSEC] 40 mg PO DAILY 06/13/17 [History] cloNIDine HCl [CloNIDine HCl] 0.1 mg PO HS 06/13/17 [History] Losartan Potassium [Cozaar] 100 mg PO DAILY 11/05/18 [History] traZODone [TraZODone] 50 mg PO HS 11/05/18 [History] Atorvastatin [Lipitor] 40 mg PO HS 30 Days #30 tablet 11/07/18 [Rx] Carvedilol [Coreg] 3.125 mg PO BIDWM 60 Days #60 tablet 11/07/18 [Rx] Clopidogrel [Plavix] 75 mg PO DAILY 30 Days #30 tablet 11/07/18 [Rx] Isosorbide MONOnitrate (24 HR) [Imdur] 30 mg PO DAILY 30 Days #30 tab.er.24h 11/07/18 [Rx] Allergies/Adverse Reactions: Allergy/AdvReac Type Severity Reaction Status Date / Time Iodinated Contrast- Oral and AdvReac Hives Verified 09/02/17 07:35 IV Dye iodine AdvReac Hives Verified 09/02/17 07:35 Date of admission: 11/05/18 19:53 Primary care physician: Gopi David MD Consults: 11/06/18 06:20 Consult to Cardiology [CONS] Routine Comment: Consulting Provider: Cardiology Gayathri Reason for Consult: Follows regularly with Dr Davis, seen last week. Continues to have intermittent chest pain, bradycardia, and dizziness. Had scheduled follow up today with [facility]. Call Completed: No 11/06/18 16:01 Consult to Cardiac Rehabilitation-Phase1 [CONS] Routine Comment: Reason for Consult: post op PCI Call Completed: Yes Discharging clinician: Elena Covington - Constitutional Vitals: Temp Pulse Resp BP Pulse Ox 98.0 F 69 18 167/96 93 11/07/18 12:01 11/07/18 12:01 11/07/18 12:01 11/07/18 12:01 11/07/18 12:01 Exam: General: In no acute distress. Respiratory exam: CTAB. no accessory muscle use, rales, rhonchi, wheezes Cardiovascular exam: RRR, +S1, +S2. no murmur, gallop, rubs. no groin hematoma on rt GI/Abdominal exam: Non-tender, Non-distended, soft, no peritoneal signs. Extremities exam: no pedal edema, pulses palpable in b/l lower extremities. no calf tenderness Neurological exam: CN II-XII intact, AO X3, no focal deficits. Skin exam: No skin rash - Patient Status Disposition: Home, Self-Care Condition: Fair - Discharge Instructions Follow Up With: Gopi David MD [Primary Care Provider] -
--- NOTE | 2018-11-09 09:49 | Electrocardiograph Report ---
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
[2018-11-10] MEDS ORDERED: *HR* Methotrexate 2.5 MG TABLET PO SCH (09:27)
== END 2018-11-07 17:10 | disposition home or self-care (01) ==
LOC: 3BNU 13:35 → EMEROOARM 13:35 → 3BNU 20:17 → 2NNU 11-06 16:35
PROVIDERS: ADMIT Internal Medicine Nephrology; ATTEND Internal Medicine Nephrology

== ENCOUNTER 2019-12-10 11:46 | Observation (INO) ==
[2019-12-10] MEDS ORDERED: GI Cocktail 40 ML EACH PO ONE (11:59)
[2019-12-10 12:35] LABS: Basophils # 0.1 K/mcL (0.0-0.2); Basophils % 1.1 %; Eosinophils # 0.2 K/mcL (0.0-0.6); Eosinophils % 2.4 %; Hematocrit 44.2 % (37.5-50.1); Hemoglobin 14.1 g/dL (12.9-16.9); Immature Granulocytes % 0.3 % (0-4); Lymphocytes # 1.6 K/mcL (0.6-4.6); Lymphocytes % 21.7 %; Mean Corpuscular HGB Conc 31.9 g/dL (31.6-35.5); Mean Corpuscular Hemoglobin 30.2 pg (28.0-33.3); Mean Corpuscular Volume 94.6 fL (83.0-100.0); Mean Platelet Volume 9.9 fL (9.4-12.4); Monocytes # 0.6 K/mcL (0.0-1.3); Neutrophils # 4.9 K/mcL (1.6-8.9); Platelet Count 252 K/mcL (140-400); Red Blood Count 4.67 M/mcL (4.19-5.50); Red Cell Distribution Width 15.2 % (11.5-14.5); Segmented Neutrophils % 66.5 %; White Blood Count 7.4 K/mcL (4.3-11.1)
[2019-12-10 12:36] LABS: Prothrombin Time 11.7 Seconds (9.4-12.1)
[2019-12-10 12:39] LABS: Activated Partial Thrombo Time 25.1 Seconds (26.0-36.0)
[2019-12-10 12:54] LABS: Alanine Aminotransferase 11 Units/L (7-52); Albumin 4.3 g/dL (3.5-5.7); Albumin/Globulin Ratio 1.5 (1.1-2.2); Alkaline Phosphatase 63 Units/L (34-104); Aspartate Amino Transferase 15 Units/L (13-39); BUN/Creatinine Ratio 12 (6-26); Bilirubin,Direct 0.1 mg/dL (0.0-0.2); Bilirubin,Indirect 0.5 mg/dL (0.0-1.0); Bilirubin,Total 0.6 mg/dL (0.3-1.0); Blood Urea Nitrogen 15 mg/dL (8-23); Calcium 9.8 mg/dL (8.6-10.3); Carbon Dioxide 27 mEq/L (23-29); Chloride 101 mEq/L (98-107); Globulin 2.9 g/dL (2.4-3.5); Glucose 119 mg/dL (70-105); Lipase 20 Units/L (11-82); Magnesium 1.8 mg/dL (1.6-2.6); Osmolality,Calculated 286 (280-300); Phosphorous 2.7 mg/dL (2.7-4.5); Potassium 4.3 mEq/L (3.5-5.1); Sodium 137 mEq/L (136-145); Total Protein 7.2 g/dL (6.4-8.9); Troponin I 0.04 ng/mL (< 0.04); eGFR For African Americans > 60 (> 60); eGFR For Non-African Americans 54 (> 60)
[2019-12-10] MEDS ORDERED: Aspirin 81 MG TAB.CHEW PO STA (13:24)
[2019-12-10 13:43] LABS: Clarity,Urine Clear (Clear); Color,Urine Yellow (Yellow); Glucose,Urine (UA) Normal (Normal)
[2019-12-10 13:44] LABS: Bilirubin,Urine Negative (Negative); Blood,Urine Negative (Negative); Ketones,Urine Negative (Negative); Leukocyte Esterase,Urine Negative (Negative); Nitrite,Urine Negative (Negative); Protein,Urine Negative (Neg-Trace); Specific Gravity,Urine 1.012 (1.010-1.025); Urobilinogen,Urine Normal (Normal)
[2019-12-10] MEDS ORDERED: Naloxone 0.4 MG/ML INJ IVP PRN (15:40)
[2019-12-10] MEDS ORDERED: Nitroglycerin 0.4 MG TAB.SUBL SL PRN (16:33)
[2019-12-10] MEDS: *HR* Heparin 5,000 UNIT/ML VIAL SQ SCH (17:59)
[2019-12-10] MEDS: *HR* HYDROcodone/Acet 10/325 mg TABLET PO PRN (19:28)
[2019-12-10] MEDS: Aspirin Enteric Coated 81 MG Tablet PO SCH (19:29)
[2019-12-10] MEDS: traZODone 50 MG TABLET PO PRN (19:29)
[2019-12-11] MEDS: *HR* HYDROcodone/Acet 10/325 mg TABLET PO PRN ×4 (01:56→20:29)
[2019-12-11 05:19] LABS: Hematocrit 38.6 % (37.5-50.1); Hemoglobin 12.7 g/dL (12.9-16.9); Mean Corpuscular HGB Conc 32.9 g/dL (31.6-35.5); Mean Corpuscular Hemoglobin 30.7 pg (28.0-33.3); Mean Corpuscular Volume 93.2 fL (83.0-100.0); Mean Platelet Volume 9.7 fL (9.4-12.4); Platelet Count 195 K/mcL (140-400); Red Blood Count 4.14 M/mcL (4.19-5.50); Red Cell Distribution Width 14.8 % (11.5-14.5); White Blood Count 8.8 K/mcL (4.3-11.1)
[2019-12-11] MEDS: *HR* Heparin 5,000 UNIT/ML VIAL SQ SCH ×2 (05:25→17:49)
[2019-12-11 05:39] LABS: BUN/Creatinine Ratio 14 (6-26); Blood Urea Nitrogen 18 mg/dL (8-23); Calcium 9.2 mg/dL (8.6-10.3); Carbon Dioxide 29 mEq/L (23-29); Chloride 103 mEq/L (98-107); Glucose 101 mg/dL (70-105); Osmolality,Calculated 294 (280-300); Potassium 4.2 mEq/L (3.5-5.1); Sodium 141 mEq/L (136-145); eGFR For African Americans > 60 (> 60); eGFR For Non-African Americans 53 (> 60)
[2019-12-11] MEDS: Folic Acid 1 MG TABLET PO SCH (08:09)
[2019-12-11] MEDS: Cyanocobalamin (B-12) 1,000 MCG TABLET PO SCH (08:09)
[2019-12-11] MEDS ORDERED: *HR* HYDROcodone/Acet 10/325 mg TABLET PO ONE (08:28)
[2019-12-11] MEDS ORDERED: Budesonide/Formoterol 160/4.5 1 PUFF INH IH PRN (13:06)
[2019-12-11] MEDS ORDERED: Ipratropium/Albuterol Neb 3 ML IH PRN (13:06)
[2019-12-11] MEDS: *HR* Ticagrelor 90 MG TABLET PO SCH (20:29)
[2019-12-11] MEDS: Aspirin Enteric Coated 81 MG Tablet PO SCH (20:29)
[2019-12-11] MEDS: traZODone 50 MG TABLET PO PRN (22:03)
[2019-12-12] MEDS: *HR* HYDROcodone/Acet 10/325 mg TABLET PO PRN ×3 (03:29→16:21)
[2019-12-12] MEDS: *HR* Heparin 5,000 UNIT/ML VIAL SQ SCH (05:52)
[2019-12-12 06:17] LABS: Basophils # 0.1 K/mcL (0.0-0.2); Basophils % 1.2 %; Eosinophils # 0.2 K/mcL (0.0-0.6); Eosinophils % 2.6 %; Hematocrit 41.2 % (37.5-50.1); Hemoglobin 13.1 g/dL (12.9-16.9); Immature Granulocytes % 0.4 % (0-4); Lymphocytes # 1.9 K/mcL (0.6-4.6); Lymphocytes % 20.2 %; Mean Corpuscular HGB Conc 31.8 g/dL (31.6-35.5); Mean Corpuscular Hemoglobin 29.8 pg (28.0-33.3); Mean Corpuscular Volume 93.6 fL (83.0-100.0); Monocytes # 0.9 K/mcL (0.0-1.3); Monocytes % 10.2 %; Platelet Count 217 K/mcL (140-400); Red Cell Distribution Width 14.9 % (11.5-14.5); Segmented Neutrophils % 65.4 %; White Blood Count 9.2 K/mcL (4.3-11.1)
[2019-12-12 06:30] LABS: Calcium 9.6 mg/dL (8.6-10.3); Potassium 4.6 mEq/L (3.5-5.1)
[2019-12-12] MEDS ORDERED: Regadenoson 0.4 MG/5 ML SYRINGE IVP ONE (06:40)
[2019-12-12] MEDS ORDERED: 0.9 % Sodium Chloride 500 ML IVC SCH (07:45)
[2019-12-12] MEDS ORDERED: Isosorbide MONOnitrate (24 HR) 30 MG TAB.ER.24H PO SCH (09:00)
[2019-12-12] MEDS ORDERED: Furosemide 40 MG TABLET PO SCH (09:00)
[2019-12-12] MEDS ORDERED: cloNIDine HCL 0.1 MG TABLET PO SCH (09:00)
[2019-12-12] MEDS: *HR* Ticagrelor 90 MG TABLET PO SCH (09:43)
[2019-12-12] MEDS: Folic Acid 1 MG TABLET PO SCH (09:43)
[2019-12-12] MEDS: Cyanocobalamin (B-12) 1,000 MCG TABLET PO SCH (09:44)
[2019-12-12 16:21] VITALS: BP 152/85
== END 2019-12-12 16:25 ==
LOC: 3BNU 11:46 → EMEROOARM 11:46 → SUATTDRO 14:06 → 3BNU 14:36
PROVIDERS: ADMIT Family Medicine; ATTEND Nurse Practitioner